=== PATIENT | male | born 1945 | race Caucasian/White ===

== ENCOUNTER 2017-05-08 10:34 | Emergency (ER) | payer MEDICARE, MEDICAID ==
[~2017-05-08] VITALS: Ht 185.4 cm; Wt 83.2 kg
[~2017-05-08 10:34] MED LIST: ALBU18HF2 INH; ASPI-611 PO; ATOR10TA70 PO; COL100C PO; FLO0.4C PO; GABA-532 PO; MAGN400C PO; NITR0.4T51 SL; SERT100T10 PO; TRAZ-143 PO; VITA-268 PO
[2017-05-08] MEDS ORDERED: LIDOcaine 2% 10ml TOPICAL JELLY (Urojet) MM ONE (13:30)
[2017-05-08 14:14] LABS: CLARITY,URINE CLOUDY (Clear); COLOR,URINE AMBER (Yellow); GLUCOSE, URINE NEGATIVE (Neg); KETONES,URINE >=80 mg/dl (Neg); LEUKOCYTE ESTERASE ,URINE MODERATE (Neg); NITRITES, URINE POSITIVE (Neg); OCCULT BLOOD,URINE LARGE (Neg); PH,URINE >=9.0 (4.8-8.0); PROTEIN,URINE >=300 mg/dl (Neg)
[2017-05-08 14:16] LABS: UA COLLECTION TYPE NON-SPECIFIED
[2017-05-08 14:19] LABS: BACTERIA,URINE 2+ /HPF (Neg); RBC,URINE TNTC /HPF (0-2); WBC,URINE 50-100 /HPF (0-4)
[2017-05-08 14:20] LABS: SQUAMOUS EPITHELIAL CELL,UR FEW /LPF (FEW)
[2017-05-08] MEDS ORDERED: CEPH-572 PO (14:29)
[2017-05-08] MEDS ORDERED: CefTRIAXone 1000mg IM Kit (w/lidocaine diluent) IM ONE (14:30)
[2017-05-08 14:50] VITALS: BP 123/72
[2017-05-21] MEDS ORDERED: CEPH500C5 PO (00:32)
[2017-06-17] MEDS ORDERED: CEPH500C2 PO (16:20)
== END 2017-05-08 14:54 | disposition home or self-care (01) ==
LOC: ER 10:34
DX: T83.038A Leakage of other urinary catheter, initial encounter (principal); N39.0 Urinary tract infection, site not specified; F32.9 Major depressive disorder, single episode, unspecified; Y92.9 Unspecified place or not applicable
CPT/HCPCS: 51702; 81001; 87077; 87088; 87186; 96372; 99284; A4310; J0696

== ENCOUNTER 2018-03-03 13:04 | Emergency (ER) | payer MEDICARE, MEDICAID ==
[~2018-03-03] VITALS: Ht 185.4 cm; Wt 82.5 kg
[~2018-03-03 13:04] MED LIST changes: +CEPH500C5 PO; -TRAZ-143 PO; +TRAZ-218 PO
[2018-03-03 13:09] VITALS: BP 108/65
== END 2018-03-03 14:24 | disposition home or self-care (01) ==
LOC: ER 13:04
DX: T42.6X1A Poisoning by other antiepileptic and sedative-hypnotic drugs, accidental (unintentional), initial encounter (principal); T46.6X1A Poisoning by antihyperlipidemic and antiarteriosclerotic drugs, accidental (unintentional), initial encounter; T44.6X1A Poisoning by alpha-adrenoreceptor antagonists, accidental (unintentional), initial encounter; F33.9 Major depressive disorder, recurrent, unspecified; G47.30 Sleep apnea, unspecified; Z79.899 Other long term (current) drug therapy; Z79.82 Long term (current) use of aspirin; Y92.9 Unspecified place or not applicable
CPT/HCPCS: 99284

== ENCOUNTER 2018-06-30 21:15 | Emergency (ER) | payer MEDICARE, MEDICAID ==
[~2018-06-30] VITALS: Ht 182.9 cm; Wt 77.3 kg
[~2018-06-30 21:15] MED LIST changes: -CEPH500C5 PO
[2018-06-30] MEDS ORDERED: morphine 4 MG/ML inj SYRINge IV ONE ×2 (21:25→22:05)
[2018-06-30] MEDS ORDERED: ondansetron/PF 4mg/2ml inj IV ONE (21:25)
[2018-06-30] MEDS ORDERED: LIDOcaine 1% 30ml preserv. free vial IJ ONE (22:00)
[2018-06-30 22:15] VITALS: BP 127/81
[2018-06-30] MEDS ORDERED: HYDROcodone/acetaminophen 10/325mg tab PO ONE (23:25)
[2018-07-01] MEDS ORDERED: HYDR-4353 PO (01:02)
[2018-07-01] MEDS ORDERED: IBUP-1986 PO (01:02)
== END 2018-07-01 01:18 | disposition home or self-care (01) ==
LOC: ER 21:16
DX: S52.592A Other fractures of lower end of left radius, initial encounter for closed fracture (principal); S52.692A Other fracture of lower end of left ulna, initial encounter for closed fracture; S52.612A Displaced fracture of left ulna styloid process, initial encounter for closed fracture; N40.0 Benign prostatic hyperplasia without lower urinary tract symptoms; F32.9 Major depressive disorder, single episode, unspecified; G47.30 Sleep apnea, unspecified; Z98.52 Vasectomy status; Z79.82 Long term (current) use of aspirin; Y04.8XXA Assault by other bodily force, initial encounter; Y93.89 Activity, other specified; Y92.89 Other specified places as the place of occurrence of the external cause; Y99.8 Other external cause status
CPT/HCPCS: 25605; 73090; 73100; 73110; 96374; 96375; 96376; 99284; J2270; J2405; J3490

== ENCOUNTER 2018-07-05 22:24 | Emergency (ER) | payer MEDICARE, MEDICAID ==
[~2018-07-05] VITALS: Ht 182.9 cm; Wt 77.7 kg
[~2018-07-05 22:24] MED LIST changes: +HYDR-4353 PO; +IBUP-1986 PO
[2018-07-05 23:27] VITALS: BP 113/73
== END 2018-07-05 23:29 | disposition home or self-care (01) ==
LOC: ER 22:24
DX: S52.592D Other fractures of lower end of left radius, subsequent encounter for closed fracture with routine healing (principal); S52.692D Other fracture of lower end of left ulna, subsequent encounter for closed fracture with routine healing; S52.612D Displaced fracture of left ulna styloid process, subsequent encounter for closed fracture with routine healing; Z98.890 Other specified postprocedural states; Z79.82 Long term (current) use of aspirin; Z79.899 Other long term (current) drug therapy; Y04.0XXD Assault by unarmed brawl or fight, subsequent encounter
CPT/HCPCS: 29125; 73110; 99283

== ENCOUNTER 2018-07-07 09:44 | Outpatient (CLI) | payer MEDICARE, MEDICAID ==
[~2018-07-07] VITALS: Ht 177.8 cm; Wt 79.9 kg
[2018-07-07 09:49] VITALS: BP 120/70
[2018-07-07 12:49] VITALS: BP 120/70
== END 2018-07-07 09:57 | disposition home or self-care (01) ==
LOC: ORTHO 09:44
PROVIDERS: ATTEND Nurse Practitioner Family
DX: S52.571A Other intraarticular fracture of lower end of right radius, initial encounter for closed fracture (principal); S52.692A Other fracture of lower end of left ulna, initial encounter for closed fracture; M19.032 Primary osteoarthritis, left wrist; M25.732 Osteophyte, left wrist; E78.00 Pure hypercholesterolemia, unspecified; J45.909 Unspecified asthma, uncomplicated; F32.9 Major depressive disorder, single episode, unspecified; G47.30 Sleep apnea, unspecified; Z98.52 Vasectomy status; Z79.899 Other long term (current) drug therapy; Z79.82 Long term (current) use of aspirin; X58.XXXA Exposure to other specified factors, initial encounter; Y93.89 Activity, other specified; Y92.89 Other specified places as the place of occurrence of the external cause; Y99.8 Other external cause status
CPT/HCPCS: 99215

== ENCOUNTER 2018-07-10 14:15 | Day surgery (SDC) | payer MEDICARE, MEDICAID ==
[2018-07-09 10:53] LABS: BASOPHILS % (AUTO) 0.5 % (0-1); EOSINOPHILS # (AUTO) 0.2 X10'3 (0-0.9); LYMPHOCYTES # (AUTO) 1.3 X10'3 (1.1-4.8); LYMPHOCYTES % (AUTO) 22.5 % (21-51); MEAN CORPUSCULAR HEMOGLOBIN 30.9 PG (27.0-31.0); MEAN CORPUSCULAR HGB CONC 33.5 % (33.0-36.5); MEAN CORPUSCULAR VOLUME 92.3 FL (78-98); MEAN PLATELET VOLUME 7.2 FL (7.4-10.4); MONOCYTES # (AUTO) 0.4 X10'3 (0-0.9); MONOCYTES % (AUTO) 6.4 % (2-12); NEUTROPHILS % (AUTO) 67.6 % (42-75); PRE OP HEMATOCRIT 40.6 % (42.0-52.0); PRE OP HEMOGLOBIN 13.6 g/dL (14.0-17.9); PRE OP PLATELET COUNT 314 X10'3 (140-440); RED BLOOD COUNT 4.39 X10'6 (4.70-6.10)
[2018-07-09 11:12] LABS: ALBUMIN 3.1 G/DL (3.4-5.0); ALKALINE PHOSPHATASE 76 IU/L (46-116); BLOOD UREA NITROGEN 20 MG/DL (7-18); CALCIUM 8.8 MG/DL (8.5-10.1); CHLORIDE 109 MMOL/L (99-107); PRE OP ALT 20 U/L (30-65); PRE OP ANION GAP 8 (8-16); PRE OP AST 14 U/L (10-37); PRE OP BILIRUB, TOTAL 0.3 MG/DL (0.0-1.0); PRE OP GLUCOSE 113 MG/DL (70-104); PRE OP SODIUM 143 MMOL/L (135-145); TOTAL CARBON DIOXIDE 26.2 MMOL/L (24-32); TOTAL PROTEIN 6.3 G/DL (6.4-8.2); eGFR 74 ML/MIN
[~2018-07-10] VITALS: Ht 182.9 cm; Wt 79.7 kg
[2018-07-10] VITALS (8 sets, daily range): BP systolic 127–139; BP diastolic 68–77
[~2018-07-10 14:15] MED LIST changes: -ALBU18HF2 INH; -COL100C PO; -HYDR-4353 PO; -IBUP-1986 PO; +LIDOcaine 1% (10mg/ml) 2ml vial ONE; -SERT100T10 PO; -TRAZ-218 PO; -VITA-268 PO; +cefazolin/dext.iso 2gm/50ml 50 ML IV ONE; +famotidine 20mg tablet PO ONE; +ringers solution, lacted 1,000 ML IV SCH; +vancomycin inj 1,500 MG in normal saline 300ml IV soln IV ONE
[2018-07-10] MEDS ORDERED: fentaNYL/PF 50MCG/1 ML 2ML syringe ONE (16:43)
[2018-07-10] MEDS ORDERED: LIDOcaine 1%/PF 5ML 10 MG/ML VIAL ONE (16:44)
[2018-07-10] MEDS ORDERED: MIDAZolam 5mg/5ml vial ONE (16:44)
[2018-07-10] MEDS ORDERED: propofol inj 20 ML IV ONE (16:44)
[2018-07-10] MEDS ORDERED: ROPIVAcaine 0.5% (5mg/ml) 30ml vial ONE (16:44)
[2018-07-10] MEDS ORDERED: sevoflurane 250ml liquid IH ONE (17:27)
[2018-07-10] MEDS ORDERED: bacitracin 15gm ointment TP ONE (18:03)
== END 2018-07-10 19:33 | disposition home or self-care (01) ==
LOC: PAS 14:15
PROVIDERS: ATTEND Orthopaedic Surgery
DX: S52.572A Other intraarticular fracture of lower end of left radius, initial encounter for closed fracture (principal); S52.612A Displaced fracture of left ulna styloid process, initial encounter for closed fracture; G47.33 Obstructive sleep apnea (adult) (pediatric); G89.18 Other acute postprocedural pain; M85.832 Other specified disorders of bone density and structure, left forearm; N40.0 Benign prostatic hyperplasia without lower urinary tract symptoms; G62.89 Other specified polyneuropathies; I25.10 Atherosclerotic heart disease of native coronary artery without angina pectoris; E78.5 Hyperlipidemia, unspecified; K21.9 Gastro-esophageal reflux disease without esophagitis; F32.9 Major depressive disorder, single episode, unspecified; Z98.52 Vasectomy status; Z79.82 Long term (current) use of aspirin; Z86.79 Personal history of other diseases of the circulatory system; Z87.891 Personal history of nicotine dependence; Z79.891 Long term (current) use of opiate analgesic; Z98.890 Other specified postprocedural states; Z79.899 Other long term (current) drug therapy; X58.XXXA Exposure to other specified factors, initial encounter; Y93.89 Activity, other specified; Y92.89 Other specified places as the place of occurrence of the external cause; Y99.8 Other external cause status; Z82.3 Family history of stroke; Z82.49 Family history of ischemic heart disease and other diseases of the circulatory system
CPT/HCPCS: 20690; 25606; 25651; 36415; 64450; 71046; 80053; 85025; A6222; A6449; J0690; J2001; J2250; J2704; J3010; J3370; J3490; A7000; J2795; J7120

== ENCOUNTER 2018-07-28 12:03 | Outpatient (CLI) | payer MEDICARE, MEDICAID ==
[~2018-07-28 12:03] MED LIST changes: -LIDOcaine 1% (10mg/ml) 2ml vial ONE; -cefazolin/dext.iso 2gm/50ml 50 ML IV ONE; -famotidine 20mg tablet PO ONE; -ringers solution, lacted 1,000 ML IV SCH; -vancomycin inj 1,500 MG in normal saline 300ml IV soln IV ONE
== END 2018-07-28 12:50 | disposition home or self-care (01) ==
LOC: ORTHO 12:03
PROVIDERS: ATTEND Nurse Practitioner Family
DX: S52.572G Other intraarticular fracture of lower end of left radius, subsequent encounter for closed fracture with delayed healing (principal); F32.9 Major depressive disorder, single episode, unspecified; Z79.899 Other long term (current) drug therapy; W18.39XD Other fall on same level, subsequent encounter
CPT/HCPCS: 73100; 99215

== ENCOUNTER 2018-08-07 10:46 | Outpatient (CLI) | payer MEDICARE, MEDICAID ==
[2018-08-07 11:16] VITALS: BP 131/74
== END 2018-08-07 11:49 | disposition home or self-care (01) ==
LOC: ORTHO 10:46
PROVIDERS: ATTEND Nurse Practitioner Family
DX: S52.572G Other intraarticular fracture of lower end of left radius, subsequent encounter for closed fracture with delayed healing (principal); S52.692G Other fracture of lower end of left ulna, subsequent encounter for closed fracture with delayed healing; F32.9 Major depressive disorder, single episode, unspecified; Z79.82 Long term (current) use of aspirin; Z79.899 Other long term (current) drug therapy; Z98.890 Other specified postprocedural states; W19.XXXD Unspecified fall, subsequent encounter
CPT/HCPCS: 99214

== ENCOUNTER 2018-08-14 11:02 | Outpatient (CLI) | payer MEDICARE, MEDICAID | END 2018-08-14 12:13 | disposition home or self-care (01) | LOC: ORTHO 11:02 | PROVIDERS: ATTEND Nurse Practitioner Family | DX: S52.572G Other intraarticular fracture of lower end of left radius, subsequent encounter for closed fracture with delayed healing (principal); S52.612D Displaced fracture of left ulna styloid process, subsequent encounter for closed fracture with routine healing; Z79.82 Long term (current) use of aspirin; X58.XXXD Exposure to other specified factors, subsequent encounter | CPT/HCPCS: 73110; G0463 ==

== ENCOUNTER 2018-08-20 10:26 | Outpatient (CLI) | payer MEDICARE, MEDICAID ==
[2018-08-20 11:03] VITALS: BP 121/66
== END 2018-08-20 11:13 | disposition home or self-care (01) ==
LOC: ORTHO 10:26
PROVIDERS: ATTEND Nurse Practitioner Family
DX: S52.572G Other intraarticular fracture of lower end of left radius, subsequent encounter for closed fracture with delayed healing (principal); S52.612G Displaced fracture of left ulna styloid process, subsequent encounter for closed fracture with delayed healing; Z79.82 Long term (current) use of aspirin; X58.XXXD Exposure to other specified factors, subsequent encounter
CPT/HCPCS: G0463

== ENCOUNTER 2018-08-28 10:53 | Outpatient (CLI) | payer MEDICARE, MEDICAID ==
[2018-08-28 10:52] VITALS: BP 128/65
== END 2018-08-28 13:15 | disposition home or self-care (01) ==
LOC: ORTHO 10:53
PROVIDERS: ATTEND Nurse Practitioner Family
DX: S52.572G Other intraarticular fracture of lower end of left radius, subsequent encounter for closed fracture with delayed healing (principal); S52.692G Other fracture of lower end of left ulna, subsequent encounter for closed fracture with delayed healing; F32.9 Major depressive disorder, single episode, unspecified; Z98.890 Other specified postprocedural states; Z79.899 Other long term (current) drug therapy; X58.XXXD Exposure to other specified factors, subsequent encounter
CPT/HCPCS: 73110; 99214; A4590

== ENCOUNTER 2018-09-15 13:12 | Outpatient (CLI) | payer MEDICARE, MEDICAID ==
[2018-09-15 13:11] VITALS: BP 123/69
== END 2018-09-15 14:07 | disposition home or self-care (01) ==
LOC: ORTHO 13:12
PROVIDERS: ATTEND Nurse Practitioner Family
DX: S52.572G Other intraarticular fracture of lower end of left radius, subsequent encounter for closed fracture with delayed healing (principal); S52.615G Nondisplaced fracture of left ulna styloid process, subsequent encounter for closed fracture with delayed healing; F32.9 Major depressive disorder, single episode, unspecified; Z60.2 Problems related to living alone; Z79.82 Long term (current) use of aspirin; X58.XXXD Exposure to other specified factors, subsequent encounter
CPT/HCPCS: 73100; 99213; A4590

== ENCOUNTER 2018-10-02 11:41 | Outpatient (CLI) | payer MEDICARE, MEDICAID ==
[2018-10-02 11:50] VITALS: BP 117/68
== END 2018-10-02 12:14 | disposition home or self-care (01) ==
LOC: ORTHO 11:41
PROVIDERS: ATTEND Nurse Practitioner Family
DX: S52.592G Other fractures of lower end of left radius, subsequent encounter for closed fracture with delayed healing (principal); S52.692G Other fracture of lower end of left ulna, subsequent encounter for closed fracture with delayed healing; S52.612G Displaced fracture of left ulna styloid process, subsequent encounter for closed fracture with delayed healing; M79.89 Other specified soft tissue disorders; M85.80 Other specified disorders of bone density and structure, unspecified site; F32.9 Major depressive disorder, single episode, unspecified; Z60.2 Problems related to living alone; Z79.82 Long term (current) use of aspirin; X58.XXXD Exposure to other specified factors, subsequent encounter
CPT/HCPCS: 73110; 99213; A4590

== ENCOUNTER 2018-10-22 08:33 | Outpatient (CLI) | payer MEDICARE, MEDICAID ==
[2018-10-22 08:42] VITALS: BP 109/58
== END 2018-10-22 09:26 | disposition home or self-care (01) ==
LOC: ORTHO 08:33
PROVIDERS: ATTEND Orthopaedic Surgery
DX: S52.592G Other fractures of lower end of left radius, subsequent encounter for closed fracture with delayed healing (principal); S52.692G Other fracture of lower end of left ulna, subsequent encounter for closed fracture with delayed healing; S52.612G Displaced fracture of left ulna styloid process, subsequent encounter for closed fracture with delayed healing; F32.9 Major depressive disorder, single episode, unspecified; M79.89 Other specified soft tissue disorders; M85.842 Other specified disorders of bone density and structure, left hand; Z60.2 Problems related to living alone; Z79.82 Long term (current) use of aspirin; X58.XXXD Exposure to other specified factors, subsequent encounter
CPT/HCPCS: 73110; 99213

== ENCOUNTER 2018-11-26 14:02 | Outpatient (CLI) | payer MEDICARE, MEDICAID ==
[2018-11-26 17:05] VITALS: BP 118/70
== END 2018-11-26 14:50 | disposition home or self-care (01) ==
LOC: ORTHO 14:02
PROVIDERS: ATTEND Orthopaedic Surgery
DX: S52.592D Other fractures of lower end of left radius, subsequent encounter for closed fracture with routine healing (principal); S52.692D Other fracture of lower end of left ulna, subsequent encounter for closed fracture with routine healing; M19.042 Primary osteoarthritis, left hand; X58.XXXD Exposure to other specified factors, subsequent encounter
CPT/HCPCS: 73100; 99213

== ENCOUNTER 2019-01-29 11:31 | Outpatient (CLI) | payer MEDICARE, MEDICAID | END 2019-01-29 12:34 | disposition home or self-care (01) | LOC: ORTHO 11:31 | PROVIDERS: ATTEND Orthopaedic Surgery | DX: S52.592D Other fractures of lower end of left radius, subsequent encounter for closed fracture with routine healing (principal); S52.692D Other fracture of lower end of left ulna, subsequent encounter for closed fracture with routine healing; X58.XXXD Exposure to other specified factors, subsequent encounter | CPT/HCPCS: 73110 ==

== ENCOUNTER 2019-12-02 12:59 | Emergency (ER) | payer MEDICARE, MEDICAID ==
[~2019-12-02] VITALS: Ht 185.4 cm; Wt 72.0 kg
[2019-12-02] MEDS ORDERED: PRED10TA23 PO (14:17)
[2019-12-02] MEDS ORDERED: PRED20TA PO (14:19)
[2019-12-02] MEDS ORDERED: ACYC-202 PO (14:19)
[2019-12-02 14:42] VITALS: BP 118/69
== END 2019-12-02 14:43 | disposition home or self-care (01) ==
LOC: ER 13:00
DX: G51.0 Bell's palsy (principal); E78.00 Pure hypercholesterolemia, unspecified; J45.909 Unspecified asthma, uncomplicated; E11.9 Type 2 diabetes mellitus without complications; F32.9 Major depressive disorder, single episode, unspecified; Z87.442 Personal history of urinary calculi; Z60.2 Problems related to living alone; Z79.82 Long term (current) use of aspirin; Z79.2 Long term (current) use of antibiotics; Z79.899 Other long term (current) drug therapy
CPT/HCPCS: 99283

== ENCOUNTER 2022-02-05 13:30 | Emergency (ER) | payer MEDICARE, MEDICAID ==
[~2022-02-05] VITALS: Ht 172.7 cm; Wt 72.8 kg
[~2022-02-05 13:30] MED LIST changes: +CIPR-202 PO; -GABA-532 PO; +LEVO250T43 PO
[2022-02-05 14:17] VITALS: BP 128/73
[2022-02-05 16:59] LABS: BASOPHILS # (AUTO) 0.1 X10'3 (0-0.2); BASOPHILS % (AUTO) 0.9 % (0-1); EOSINOPHILS # (AUTO) 0.2 X10'3 (0-0.9); EOSINOPHILS % (AUTO) 2.6 % (0-6); HEMATOCRIT 42.2 % (42.0-52.0); LYMPHOCYTES # (AUTO) 1.2 X10'3 (1.1-4.8); MEAN CORPUSCULAR HEMOGLOBIN 29.9 PG (27.0-31.0); MEAN CORPUSCULAR HGB CONC 33.2 g/dL (33.0-36.5); MEAN CORPUSCULAR VOLUME 89.8 FL (78-98); MEAN PLATELET VOLUME 7.7 FL (7.4-10.4); MONOCYTES # (AUTO) 0.5 X10'3 (0-0.9); MONOCYTES % (AUTO) 7.3 % (2-12); NEUTROPHILS # (AUTO) 4.8 X10'3 (1.8-7.7); NEUTROPHILS % (AUTO) 71.2 % (42-75); PLATELET COUNT 252 X10'3 (140-440); RED BLOOD COUNT 4.69 X10'6 (4.70-6.10); RED CELL DISTRIBUTION WIDTH 13.4 % (11.5-14.5); WHITE BLOOD COUNT 6.7 X10'3 (4.5-11.0)
[2022-02-05 17:10] LABS: ALANINE AMINOTRANSFERASE 22 U/L (12-78); ALBUMIN 3.5 G/DL (3.4-5.0); ALKALINE PHOSPHATASE 88 IU/L (46-116); ANION GAP 9 (8-16); ASPARTATE AMINO TRANSFERASE 12 U/L (10-37); BILIRUBIN,TOTAL 0.6 MG/DL (0.1-1.0); BLOOD UREA NITROGEN 26 MG/DL (7-18); BUN/CREATININE RATIO 26.3 (5.4-32.0); CHLORIDE 108 MMOL/L (99-107); CREATININE 0.99 MG/DL (0.60-1.10); GLUCOSE 110 MG/DL (70-104); POTASSIUM 3.8 MMOL/L (3.5-5.1); SODIUM 142 MMOL/L (135-145); TOTAL CARBON DIOXIDE 24.6 MMOL/L (24-32); TOTAL PROTEIN 7.1 G/DL (6.4-8.2); eGFR 74 ML/MIN
[2022-02-05 17:20] LABS: UA COLLECTION TYPE FOLEY CATH
[2022-02-05 17:21] LABS: CLARITY,URINE SLIGHTLY CLOUDY (Clear); COLOR,URINE YELLOW (Yellow); GLUCOSE, URINE NEGATIVE (Neg); KETONES,URINE NEGATIVE (Neg); LEUKOCYTE ESTERASE ,URINE NEGATIVE (Neg); NITRITES, URINE NEGATIVE (Neg); OCCULT BLOOD,URINE LARGE (Neg); PH,URINE 8.5 (4.8-8.0); PROTEIN,URINE 100 mg/dl (Neg); UROBILINOGEN,URINE 0.2 E.U/dL (0.2-1.0)
[2022-02-05 17:27] LABS: AMORPHOUS PHOSPHATES 1+; BACTERIA,URINE NONE SEEN /HPF (Neg); RBC,URINE 50-100 /HPF (0-2); SQUAMOUS EPITHELIAL CELL,UR FEW /LPF (FEW); WBC,URINE 0-4 /HPF (0-4)
== END 2022-02-05 18:02 | disposition home or self-care (01) ==
LOC: ER 13:31
DX: T85.9XXA Unspecified complication of internal prosthetic device, implant and graft, initial encounter (principal); R33.9 Retention of urine, unspecified; R31.9 Hematuria, unspecified; E78.00 Pure hypercholesterolemia, unspecified; J45.909 Unspecified asthma, uncomplicated; E11.9 Type 2 diabetes mellitus without complications; F32.A Depression, unspecified; Z79.82 Long term (current) use of aspirin; Z87.448 Personal history of other diseases of urinary system; Z79.899 Other long term (current) drug therapy
CPT/HCPCS: 36415; 80053; 81001; 85025; 99283

== ENCOUNTER 2022-02-14 12:51 | Emergency (ER) | payer MEDICARE, MEDICAID ==
[~2022-02-14] VITALS: Ht 182.9 cm; Wt 80.9 kg
[2022-02-14 12:56] VITALS: BP 143/68
[2022-02-14] MEDS ORDERED: CefTRIAXone 1000mg IM Kit (w/lidocaine diluent) IM ONE (13:40)
[2022-02-14] MEDS ORDERED: FOSF3PAC PO (13:43)
[2022-02-14 13:52] LABS: CLARITY,URINE CLOUDY (Clear); COLOR,URINE YELLOW (Yellow); GLUCOSE, URINE NEGATIVE (Neg); KETONES,URINE NEGATIVE (Neg); LEUKOCYTE ESTERASE ,URINE MODERATE (Neg); NITRITES, URINE NEGATIVE (Neg); OCCULT BLOOD,URINE MODERATE (Neg); PH,URINE 8.5 (4.8-8.0); PROTEIN,URINE 100 mg/dl (Neg); UROBILINOGEN,URINE 0.2 E.U/dL (0.2-1.0)
[2022-02-14 13:55] LABS: UA COLLECTION TYPE INDWELLING CATH
[2022-02-14 14:24] LABS: RBC,URINE 20-50 /HPF (0-2)
[2022-02-14 14:25] LABS: AMORPHOUS PHOSPHATES 4+
[2022-02-14 14:26] LABS: BACTERIA,URINE 4+ /HPF (Neg)
[2022-02-14 14:30] LABS: MUCUS STRANDS MANY /LPF (Neg); SQUAMOUS EPITHELIAL CELL,UR FEW /LPF (FEW); WBC,URINE 0-4 /HPF (0-4)
[2022-02-14 14:34] LABS: TRIPLE PHOSPHATE CRYST 1+ /HPF (NEGATIVE)
== END 2022-02-14 15:20 | disposition home or self-care (01) ==
LOC: ER 12:53
DX: T83.098A Other mechanical complication of other urinary catheter, initial encounter (principal); N39.0 Urinary tract infection, site not specified; E78.00 Pure hypercholesterolemia, unspecified; J45.909 Unspecified asthma, uncomplicated; E11.9 Type 2 diabetes mellitus without complications; F32.A Depression, unspecified; Z87.442 Personal history of urinary calculi; Z79.82 Long term (current) use of aspirin; Z79.2 Long term (current) use of antibiotics
CPT/HCPCS: 51702; 81001; 87077; 87088; 87186; 96372; 99284; J0696; 99283

== ENCOUNTER 2022-02-22 08:53 | Emergency (ER) | payer MEDICARE, MEDICAID ==
[~2022-02-22] VITALS: Ht 182.9 cm; Wt 80.9 kg
[~2022-02-22 08:53] MED LIST changes: +FOSF3PAC PO; -LEVO250T43 PO; +LEVO250T74 PO
[2022-02-22 09:18] VITALS: BP 137/71
[2022-02-22] MEDS ORDERED: LIDOcaine 2% 10ml TOPICAL JELLY (Urojet) TP ONE (09:25)
[2022-02-22 12:05] LABS: CLARITY,URINE CLOUDY (Clear); COLOR,URINE YELLOW (Yellow); GLUCOSE, URINE NEGATIVE (Neg); KETONES,URINE NEGATIVE (Neg); LEUKOCYTE ESTERASE ,URINE LARGE (Neg); NITRITES, URINE NEGATIVE (Neg); OCCULT BLOOD,URINE LARGE (Neg); PH,URINE >=9.0 (4.8-8.0); PROTEIN,URINE >=300 mg/dl (Neg)
[2022-02-22 12:11] LABS: UA COLLECTION TYPE FOLEY CATH
[2022-02-22] MEDS ORDERED: cephalexin 250mg capsule PO ONE (12:15)
[2022-02-22 12:38] LABS: TRIPLE PHOSPHATE CRYST 2+ /HPF (NEGATIVE)
[2022-02-22 12:39] LABS: AMORPHOUS PHOSPHATES 3+
[2022-02-22 12:40] LABS: BACTERIA,URINE FEW /HPF (Neg); MUCUS STRANDS NONE SEEN /LPF (Neg); SQUAMOUS EPITHELIAL CELL,UR NONE SEEN /LPF (FEW)
[2022-02-22] MEDS ORDERED: CEPH-585 PO (13:00)
[2022-04-05] MEDS ORDERED: PREG50CA PO (14:18)
[2022-04-05] MEDS ORDERED: OMEP20CA15 PO (14:21)
[2022-04-05] MEDS ORDERED: OMEP40CA21 PO (16:50)
[2022-04-07] MEDS ORDERED: AMOX-419 PO (10:55)
== END 2022-02-22 13:20 | disposition home or self-care (01) ==
LOC: ER 08:53
DX: N39.0 Urinary tract infection, site not specified (principal); T83.9XXA Unspecified complication of genitourinary prosthetic device, implant and graft, initial encounter; E78.00 Pure hypercholesterolemia, unspecified; J45.909 Unspecified asthma, uncomplicated; E11.9 Type 2 diabetes mellitus without complications
CPT/HCPCS: 51702; 81001; 87077; 87088; 87186; 99284; A4314; A4340; A4358

== ENCOUNTER 2022-03-18 19:36 | Emergency (ER) | payer MEDICARE, MEDICAID ==
[~2022-03-18] VITALS: Ht 182.9 cm; Wt 78.0 kg
[~2022-03-18 19:36] MED LIST changes: +CEPH-585 PO; -LEVO250T74 PO
[2022-03-18 20:10] VITALS: BP 124/69
[2022-03-18] MEDS ORDERED: LIDOcaine 2% 10ml TOPICAL JELLY (Urojet) TP ONE (21:40)
== END 2022-03-18 23:11 | disposition home or self-care (01) ==
LOC: ER 19:37
DX: T83.098A Other mechanical complication of other urinary catheter, initial encounter (principal); E78.00 Pure hypercholesterolemia, unspecified; J45.909 Unspecified asthma, uncomplicated; E11.9 Type 2 diabetes mellitus without complications
CPT/HCPCS: 51702; 99284; A4314; A4340; A4357; A4358

== ENCOUNTER 2022-04-13 13:38 | Emergency (ER) | payer MEDICARE, MEDICAID ==
[~2022-04-13] VITALS: Ht 182.9 cm; Wt 80.9 kg
[~2022-04-13 13:38] MED LIST changes: +AMOX-419 PO; +LEVO250T74 PO; +OMEP20CA15 PO; +OMEP40CA21 PO; +PREG50CA PO
[2022-04-13] MEDS ORDERED: LIDOcaine 2% 10ml TOPICAL JELLY (Urojet) TP ONE (18:00)
[2022-04-13 18:26] LABS: BASOPHILS # (AUTO) 0.1 X10'3 (0-0.2); BASOPHILS % (AUTO) 0.6 % (0-1); EOSINOPHILS % (AUTO) 0 % (0-6); HEMATOCRIT 40.3 % (42.0-52.0); HEMOGLOBIN 13.5 g/dl (14.0-17.9); LYMPHOCYTES # (AUTO) 0.6 X10'3 (1.1-4.8); LYMPHOCYTES % (AUTO) 6.1 % (21-51); MEAN CORPUSCULAR HEMOGLOBIN 29.8 PG (27.0-31.0); MEAN CORPUSCULAR HGB CONC 33.5 g/dL (33.0-36.5); MEAN CORPUSCULAR VOLUME 88.7 FL (78-98); MEAN PLATELET VOLUME 7.4 FL (7.4-10.4); MONOCYTES # (AUTO) 0.3 X10'3 (0-0.9); MONOCYTES % (AUTO) 3.8 % (2-12); NEUTROPHILS # (AUTO) 8.1 X10'3 (1.8-7.7); NEUTROPHILS % (AUTO) 89.5 % (42-75); PLATELET COUNT 281 X10'3 (140-440); RED BLOOD COUNT 4.55 X10'6 (4.70-6.10); RED CELL DISTRIBUTION WIDTH 14.3 % (11.5-14.5)
[2022-04-13 18:30] LABS: ALANINE AMINOTRANSFERASE 23 U/L (12-78); ALBUMIN 3.7 G/DL (3.4-5.0); ALBUMIN/GLOBULIN RATIO 1.1 (1.1-1.5); ALKALINE PHOSPHATASE 102 IU/L (46-116); ANION GAP 10 (8-16); ASPARTATE AMINO TRANSFERASE 19 U/L (10-37); BILIRUBIN,TOTAL 0.5 MG/DL (0.1-1.0); BLOOD UREA NITROGEN 23 MG/DL (7-18); BUN/CREATININE RATIO 19.2 (5.4-32.0); CHLORIDE 107 MMOL/L (99-107); GLUCOSE 125 MG/DL (70-104); POTASSIUM 4.1 MMOL/L (3.5-5.1); SODIUM 143 MMOL/L (135-145); TOTAL CARBON DIOXIDE 25.9 MMOL/L (24-32); TOTAL PROTEIN 7.1 G/DL (6.4-8.2); eGFR 59 ML/MIN
[2022-04-13 18:33] LABS: CLARITY,URINE CLOUDY (Clear); GLUCOSE, URINE NEGATIVE (Neg); KETONES,URINE TRACE mg/dl (Neg); LEUKOCYTE ESTERASE ,URINE TRACE (Neg); NITRITES, URINE POSITIVE (Neg); OCCULT BLOOD,URINE LARGE (Neg); PROTEIN,URINE 100 mg/dl (Neg); UROBILINOGEN,URINE 0.2 E.U/dL (0.2-1.0)
[2022-04-13 18:48] LABS: COLOR,URINE AMBER (Yellow); UA COLLECTION TYPE NON-SPECIFIED
[2022-04-13 18:50] LABS: RBC,URINE TNTC /HPF (0-2)
[2022-04-13 18:51] LABS: BACTERIA,URINE FEW /HPF (Neg); SQUAMOUS EPITHELIAL CELL,UR FEW /LPF (FEW)
[2022-04-13 20:20] VITALS: BP 111/68
== END 2022-04-13 20:24 | disposition home or self-care (01) ==
LOC: ER 13:39
DX: R33.9 Retention of urine, unspecified (principal); E78.00 Pure hypercholesterolemia, unspecified; J45.909 Unspecified asthma, uncomplicated; E11.9 Type 2 diabetes mellitus without complications
CPT/HCPCS: 51702; 80053; 81001; 85025; 85610; 87077; 87088; 87186; 99284; A4314; A4338; A4340

== ENCOUNTER 2022-04-16 18:16 | Emergency (ER) | payer MEDICARE, MEDICAID ==
[~2022-04-16] VITALS: Ht 182.9 cm; Wt 80.9 kg
[~2022-04-16 18:16] MED LIST changes: -CEPH-585 PO; -CIPR-202 PO; -FOSF3PAC PO; -LEVO250T74 PO; -OMEP20CA15 PO
[2022-04-16 18:36] VITALS: BP 141/73
--- NOTE | 2022-04-16 19:06 | NUR ---
parr irr with 250ml h2o. 250ml in 260ml out. clean clear h20 with no clots visable. informed
== END 2022-04-16 19:54 | disposition home or self-care (01) ==
LOC: ER 18:16
DX: Z46.6 Encounter for fitting and adjustment of urinary device (principal); R31.9 Hematuria, unspecified; E78.00 Pure hypercholesterolemia, unspecified; E11.9 Type 2 diabetes mellitus without complications
CPT/HCPCS: 99283

== ENCOUNTER 2022-04-27 09:42 | Emergency (ER) | payer MEDICARE, MEDICAID ==
[~2022-04-27] VITALS: Ht 185.4 cm; Wt 78.8 kg
[~2022-04-27 09:42] MED LIST changes: -AMOX-419 PO
[2022-04-27 09:57] VITALS: BP 145/79
[2022-04-27 10:52] LABS: CLARITY,URINE TURBID (Clear); COLOR,URINE YELLOW (Yellow); GLUCOSE, URINE NEGATIVE (Neg); KETONES,URINE NEGATIVE (Neg); LEUKOCYTE ESTERASE ,URINE SMALL (Neg); NITRITES, URINE NEGATIVE (Neg); OCCULT BLOOD,URINE MODERATE (Neg); PH,URINE >=9.0 (4.8-8.0); PROTEIN,URINE >=300 mg/dl (Neg)
[2022-04-27 10:54] LABS: UA COLLECTION TYPE FOLEY CATH
[2022-04-27 11:08] LABS: AMORPHOUS PHOSPHATES 3+; BACTERIA,URINE 3+ /HPF (Neg); MUCUS STRANDS NONE SEEN /LPF (Neg); SQUAMOUS EPITHELIAL CELL,UR NONE SEEN /LPF (FEW); TRIPLE PHOSPHATE CRYST 4+ /HPF (NEGATIVE)
[2022-04-27 11:30] LABS: CLARITY,URINE CLOUDY (Clear); COLOR,URINE YELLOW (Yellow); GLUCOSE, URINE NEGATIVE (Neg); KETONES,URINE NEGATIVE (Neg); LEUKOCYTE ESTERASE ,URINE SMALL (Neg); NITRITES, URINE NEGATIVE (Neg); OCCULT BLOOD,URINE LARGE (Neg); PH,URINE 7.5 (4.8-8.0); PROTEIN,URINE 30 mg/dl (Neg); UROBILINOGEN,URINE 0.2 E.U/dL (0.2-1.0)
[2022-04-27 11:31] LABS: UA COLLECTION TYPE NON-SPECIFIED
[2022-04-27 11:39] LABS: BACTERIA,URINE 2+ /HPF (Neg); MUCUS STRANDS FEW /LPF (Neg); RBC,URINE TNTC /HPF (0-2); SQUAMOUS EPITHELIAL CELL,UR NONE SEEN /LPF (FEW)
[2022-04-27 11:40] LABS: AMORPHOUS PHOSPHATES 2+
== END 2022-04-27 12:53 | disposition home or self-care (01) ==
LOC: ER 09:43
DX: T83.511A Infection and inflammatory reaction due to indwelling urethral catheter, initial encounter (principal); R33.9 Retention of urine, unspecified; E11.42 Type 2 diabetes mellitus with diabetic polyneuropathy; E78.00 Pure hypercholesterolemia, unspecified; J45.909 Unspecified asthma, uncomplicated; F32.A Depression, unspecified; Z87.442 Personal history of urinary calculi; Z60.2 Problems related to living alone; Z79.82 Long term (current) use of aspirin; Z79.899 Other long term (current) drug therapy; Y84.8 Other medical procedures as the cause of abnormal reaction of the patient, or of later complication, without mention of misadventure at the time of the procedure
CPT/HCPCS: 51702; 81001; 87088; 99284; A4314; A4340; A4358; A5200

== ENCOUNTER 2022-05-02 18:43 | Emergency (ER) | payer MEDICARE, MEDICAID ==
[~2022-05-02] VITALS: Ht 185.4 cm; Wt 78.8 kg
[2022-05-02 19:54] VITALS: BP 132/100
[2022-05-02 20:38] LABS: CLARITY,URINE CLOUDY (Clear); COLOR,URINE YELLOW (Yellow); GLUCOSE, URINE NEGATIVE (Neg); KETONES,URINE NEGATIVE (Neg); LEUKOCYTE ESTERASE ,URINE MODERATE (Neg); NITRITES, URINE NEGATIVE (Neg); OCCULT BLOOD,URINE LARGE (Neg); PH,URINE >=9.0 (4.8-8.0); PROTEIN,URINE 100 mg/dl (Neg); UROBILINOGEN,URINE 0.2 E.U/dL (0.2-1.0)
[2022-05-02 20:53] LABS: UA COLLECTION TYPE NON-SPECIFIED
[2022-05-02 20:54] LABS: AMORPHOUS PHOSPHATES 1+; BACTERIA,URINE 2+ /HPF (Neg); MUCUS STRANDS NONE SEEN /LPF (Neg); RBC,URINE 20-50 /HPF (0-2); SQUAMOUS EPITHELIAL CELL,UR FEW /LPF (FEW); TRANSITIONAL EPI CELLS,URINE FEW /HPF
== END 2022-05-02 22:06 | disposition home or self-care (01) ==
LOC: ER 18:44
DX: R33.9 Retention of urine, unspecified (principal); T83.091A Other mechanical complication of indwelling urethral catheter, initial encounter; E78.00 Pure hypercholesterolemia, unspecified; J45.909 Unspecified asthma, uncomplicated; E11.9 Type 2 diabetes mellitus without complications
CPT/HCPCS: 51702; 81001; 87077; 87088; 99284; C1758; A4340; A4358

== ENCOUNTER 2022-05-06 09:29 | Emergency (ER) | payer MEDICARE, MEDICAID ==
[~2022-05-06] VITALS: Ht 182.9 cm; Wt 78.2 kg
[2022-05-06 09:40] VITALS: BP 157/83
[2022-05-06] MEDS ORDERED: ciprofloxacin 250mg tablet PO ONE (11:10)
[2022-05-06] MEDS ORDERED: CIPR-202 PO (11:12)
[2022-05-06 11:49] LABS: COLOR,URINE YELLOW (Yellow); GLUCOSE, URINE NEGATIVE (Neg); KETONES,URINE NEGATIVE (Neg); LEUKOCYTE ESTERASE ,URINE MODERATE (Neg); NITRITES, URINE NEGATIVE (Neg); OCCULT BLOOD,URINE LARGE (Neg); PH,URINE >=9.0 (4.8-8.0); PROTEIN,URINE 100 mg/dl (Neg); UROBILINOGEN,URINE 0.2 E.U/dL (0.2-1.0)
[2022-05-06 11:51] LABS: CLARITY,URINE CLOUDY (Clear); UA COLLECTION TYPE FOLEY CATH
[2022-05-06 12:04] LABS: RBC,URINE 20-50 /HPF (0-2)
[2022-05-06 12:05] LABS: SQUAMOUS EPITHELIAL CELL,UR FEW /LPF (FEW); TRIPLE PHOSPHATE CRYST 1+ /HPF (NEGATIVE)
[2022-05-06 12:06] LABS: AMORPHOUS PHOSPHATES 2+; BACTERIA,URINE 2+ /HPF (Neg)
== END 2022-05-06 12:08 | disposition home or self-care (01) ==
LOC: ER 09:29
DX: T83.038D Leakage of other urinary catheter, subsequent encounter (principal); E78.00 Pure hypercholesterolemia, unspecified; J45.909 Unspecified asthma, uncomplicated; E11.9 Type 2 diabetes mellitus without complications
CPT/HCPCS: 81001; 87088; 99283; A5200

== ENCOUNTER 2022-05-07 21:10 | Emergency (ER) | payer MEDICARE, MEDICAID ==
[~2022-05-07] VITALS: Ht 182.9 cm; Wt 78.0 kg
[~2022-05-07 21:10] MED LIST changes: +CIPR-202 PO
[2022-05-07 21:15] VITALS: BP 141/87
[2022-05-07] MEDS ORDERED: LIDOcaine 2% 10ml TOPICAL JELLY (Urojet) MM ONE (23:35)
[2022-05-08] MEDS ORDERED: ciprofloxacin 250mg tablet PO ONE (01:05)
== END 2022-05-08 01:26 | disposition home or self-care (01) ==
LOC: ER 21:11
DX: T83.098A Other mechanical complication of other urinary catheter, initial encounter (principal); E78.00 Pure hypercholesterolemia, unspecified; J45.909 Unspecified asthma, uncomplicated; Z87.442 Personal history of urinary calculi; E11.9 Type 2 diabetes mellitus without complications; F32.9 Major depressive disorder, single episode, unspecified; Y83.9 Surgical procedure, unspecified as the cause of abnormal reaction of the patient, or of later complication, without mention of misadventure at the time of the procedure; Y92.89 Other specified places as the place of occurrence of the external cause
CPT/HCPCS: 51702; 99284; C1758; A4314; A4340

== ENCOUNTER 2022-05-18 12:23 | Emergency (ER) | payer MEDICARE, MEDICAID ==
[~2022-05-18] VITALS: Ht 182.9 cm; Wt 78.6 kg
[2022-05-18 12:30] VITALS: BP 118/83
[2022-05-18] MEDS ORDERED: ondansetron 4mg rapidly disintigrating tab PO ONE (14:15)
[2022-05-20] MEDS ORDERED: ATOR20TA66 PO (18:07)
== END 2022-05-18 14:41 | disposition home or self-care (01) ==
LOC: ER 12:24
DX: T83.098A Other mechanical complication of other urinary catheter, initial encounter (principal); E78.00 Pure hypercholesterolemia, unspecified; J45.909 Unspecified asthma, uncomplicated; E11.9 Type 2 diabetes mellitus without complications; F32.A Depression, unspecified; Z87.442 Personal history of urinary calculi; Z79.82 Long term (current) use of aspirin
CPT/HCPCS: 51702; 99284; A4340

== ENCOUNTER 2022-06-16 13:10 | Emergency (ER) | payer MEDICARE, MEDICAID ==
[~2022-06-16] VITALS: Ht 182.9 cm; Wt 77.7 kg
[~2022-06-16 13:10] MED LIST changes: -ATOR10TA70 PO; +ATOR20TA66 PO; +CEFD300C3 PO; -CIPR-202 PO
[2022-06-16 13:26] VITALS: BP 130/77
--- NOTE | 2022-06-16 14:13 | NUR ---
PATIENT WAS GIVEN A NEW DRAINAGE BAG AND LEG STRAP. CASTANO CATH IS PATENT AND DRAINING WINE COLORED URINE.
== END 2022-06-16 18:47 | disposition home or self-care (01) ==
LOC: ER 13:11
DX: T83.9XXA Unspecified complication of genitourinary prosthetic device, implant and graft, initial encounter (principal); E78.00 Pure hypercholesterolemia, unspecified; J45.909 Unspecified asthma, uncomplicated; E11.9 Type 2 diabetes mellitus without complications
CPT/HCPCS: 51702; 99284; A5200

== ENCOUNTER 2022-06-18 18:25 | Emergency (ER) | payer MEDICARE, MEDICAID ==
[~2022-06-18] VITALS: Ht 193 cm; Wt 78.6 kg
[2022-06-18 19:33] VITALS: BP 154/90
== END 2022-06-18 21:29 | disposition home or self-care (01) ==
LOC: ER 18:25
DX: T83.9XXA Unspecified complication of genitourinary prosthetic device, implant and graft, initial encounter (principal); E78.00 Pure hypercholesterolemia, unspecified; J45.909 Unspecified asthma, uncomplicated; E11.9 Type 2 diabetes mellitus without complications
CPT/HCPCS: 99284; A4340

== ENCOUNTER 2022-06-27 13:59 | Emergency (ER) | payer MEDICARE, MEDICAID ==
[~2022-06-27] VITALS: Ht 182.9 cm; Wt 79.5 kg
[~2022-06-27 13:59] MED LIST changes: -CEFD300C3 PO
[2022-06-27 16:45] LABS: BASOPHILS % (AUTO) 0.3 % (0-1); EOSINOPHILS % (AUTO) 0.3 % (0-6); HEMATOCRIT 37.3 % (42.0-52.0); HEMOGLOBIN 12.2 g/dl (14.0-17.9); LYMPHOCYTES # (AUTO) 1.4 X10'3 (1.1-4.8); LYMPHOCYTES % (AUTO) 11.7 % (21-51); MEAN CORPUSCULAR HEMOGLOBIN 28.8 PG (27.0-31.0); MEAN CORPUSCULAR HGB CONC 32.7 g/dL (33.0-36.5); MEAN CORPUSCULAR VOLUME 88.1 FL (78-98); MEAN PLATELET VOLUME 7.3 FL (7.4-10.4); NEUTROPHILS # (AUTO) 9.5 X10'3 (1.8-7.7); NEUTROPHILS % (AUTO) 79.7 % (42-75); PLATELET COUNT 436 X10'3 (140-440); RED BLOOD COUNT 4.23 X10'6 (4.70-6.10); RED CELL DISTRIBUTION WIDTH 13.5 % (11.5-14.5); WHITE BLOOD COUNT 11.9 X10'3 (4.5-11.0)
--- NOTE | 2022-06-27 17:00 | NUR ---
Old 18F parr removed and new 18F parr placed. Pt tolerated well
[2022-06-27 17:01] LABS: ALANINE AMINOTRANSFERASE 34 U/L (12-78); ALBUMIN 2.4 G/DL (3.4-5.0); ALBUMIN/GLOBULIN RATIO 0.5 (1.1-1.5); ALKALINE PHOSPHATASE 272 IU/L (46-116); ANION GAP 9 (8-16); ASPARTATE AMINO TRANSFERASE 18 U/L (10-37); BILIRUBIN,TOTAL 1.2 MG/DL (0.1-1.0); BLOOD UREA NITROGEN 20 MG/DL (7-18); BUN/CREATININE RATIO 14.1 (5.4-32.0); CALCIUM 9.5 MG/DL (8.5-10.1); CHLORIDE 101 MMOL/L (99-107); CREATININE 1.42 MG/DL (0.60-1.10); GLUCOSE 114 MG/DL (70-104); POTASSIUM 3.4 MMOL/L (3.5-5.1); SODIUM 135 MMOL/L (135-145); TOTAL CARBON DIOXIDE 24.8 MMOL/L (24-32); TOTAL PROTEIN 6.8 G/DL (6.4-8.2); eGFR 49 ML/MIN
[2022-06-27 17:14] LABS: ETHANOL < 0.010 GM/DL (0.0-0.010)
[2022-06-27 17:21] VITALS: BP 135/87
[2022-06-27 17:30] LABS: CLARITY,URINE CLOUDY (Clear); COLOR,URINE YELLOW (Yellow); GLUCOSE, URINE NEGATIVE (Neg); KETONES,URINE TRACE mg/dl (Neg); LEUKOCYTE ESTERASE ,URINE MODERATE (Neg); NITRITES, URINE POSITIVE (Neg); OCCULT BLOOD,URINE MODERATE (Neg); PH,URINE 7.5 (4.8-8.0); PROTEIN,URINE 30 mg/dl (Neg); UROBILINOGEN,URINE 0.2 E.U/dL (0.2-1.0)
[2022-06-27 17:31] LABS: UA COLLECTION TYPE FOLEY CATH
[2022-06-27 17:38] LABS: URINE AMPHETAMINE SCREEN NEGATIVE (Neg); URINE BARBITUATE SCREEN NEGATIVE (Neg); URINE BENZODIAZEPINES SCREEN NEGATIVE (Neg); URINE CANNABINOID SCREEN NEGATIVE (Neg); URINE COCAINE SCREEN NEGATIVE (Neg); URINE METHADONE SCREEN NEGATIVE (Neg); URINE OPIATE SCREEN NEGATIVE (Neg); URINE PHENCYCLIDINE SCREEN NEGATIVE (Neg)
[2022-06-27 17:58] LABS: BACTERIA,URINE 4+ /HPF (Neg); RBC,URINE 50-100 /HPF (0-2); WBC,URINE TNTC /HPF (0-4)
[2022-06-27] MEDS ORDERED: CefTRIAXone/D5W-Rocephin 1gm 50 ML IV ONE (18:00)
[2022-06-27 18:01] LABS: SQUAMOUS EPITHELIAL CELL,UR FEW /LPF (FEW); WBC CLUMPS,URINE MODERATE /HPF (NEGATIVE)
[2022-06-27] MEDS ORDERED: CEPH-585 PO (18:06)
== END 2022-06-28 03:26 | disposition home or self-care (01) ==
LOC: ER 13:59
DX: R42 Dizziness and giddiness (principal); N39.0 Urinary tract infection, site not specified; E78.00 Pure hypercholesterolemia, unspecified; J45.909 Unspecified asthma, uncomplicated; E11.9 Type 2 diabetes mellitus without complications
CPT/HCPCS: 36415; 70450; 71045; 72170; 73564; 80053; 80305; 80320; 81001; 83605; 83735; 83880; 84484; 85025; 87077; 87088; 87186; 93005; 96365; 99285; J0696

== ENCOUNTER 2022-08-23 20:34 | Emergency (ER) | payer MEDICARE, MEDICAID ==
[~2022-08-23] VITALS: Ht 182.9 cm; Wt 80.0 kg
[2022-08-23 20:38] VITALS: BP 129/73
== END 2022-08-23 21:15 | disposition home or self-care (01) ==
LOC: ER 20:35
DX: T83.9XXA Unspecified complication of genitourinary prosthetic device, implant and graft, initial encounter (principal); E78.00 Pure hypercholesterolemia, unspecified; J45.909 Unspecified asthma, uncomplicated; E11.9 Type 2 diabetes mellitus without complications; F32.A Depression, unspecified; Z87.442 Personal history of urinary calculi; Z60.2 Problems related to living alone; Z79.82 Long term (current) use of aspirin; Z79.899 Other long term (current) drug therapy; Y84.6 Urinary catheterization as the cause of abnormal reaction of the patient, or of later complication, without mention of misadventure at the time of the procedure
CPT/HCPCS: 99281

== ENCOUNTER 2022-10-09 14:51 | Emergency (ER) | payer MEDICARE, MEDICAID ==
[~2022-10-09] VITALS: Ht 185.4 cm; Wt 72.4 kg
[2022-10-09] MEDS ORDERED: LIDOcaine 2% 10ml TOPICAL JELLY (Urojet) TP ONE (19:05)
[2022-10-09] MEDS ORDERED: LidoCAINE 2% Topical Jelly 11mL syringe TOP ONE (19:15)
[2022-10-09 21:22] LABS: CLARITY,URINE CLOUDY (Clear); COLOR,URINE STRAW (Yellow); GLUCOSE, URINE NEGATIVE (Neg); KETONES,URINE NEGATIVE (Neg); LEUKOCYTE ESTERASE ,URINE LARGE (Neg); NITRITES, URINE POSITIVE (Neg); OCCULT BLOOD,URINE LARGE (Neg); PH,URINE 5.5 (4.8-8.0); PROTEIN,URINE 30 mg/dl (Neg); UROBILINOGEN,URINE 0.2 E.U/dL (0.2-1.0)
[2022-10-09 21:27] LABS: UA COLLECTION TYPE FOLEY CATH
[2022-10-09 21:29] LABS: SQUAMOUS EPITHELIAL CELL,UR MANY /LPF (FEW)
[2022-10-09 21:30] LABS: FINE GRANULAR CAST 0-3 /LPF (NEGATIVE); HYALINE CASTS 0-3 /LPF (NEGATIVE); WBC,URINE TNTC /HPF (0-4)
[2022-10-09 21:31] LABS: BACTERIA,URINE 3+ /HPF (Neg); RBC,URINE TNTC /HPF (0-2); TRANSITIONAL EPI CELLS,URINE FEW /HPF
[2022-10-09] MEDS ORDERED: CEPH-585 PO (21:33)
[2022-10-09] MEDS ORDERED: cephalexin 500mg capsule PO ONE (21:35)
[2022-10-09 22:00] VITALS: BP 140/84
== END 2022-10-09 22:08 | disposition home or self-care (01) ==
LOC: ER 14:52
DX: N39.0 Urinary tract infection, site not specified (principal); T83.038A Leakage of other urinary catheter, initial encounter; E78.00 Pure hypercholesterolemia, unspecified; J45.909 Unspecified asthma, uncomplicated; E11.9 Type 2 diabetes mellitus without complications
CPT/HCPCS: 51702; 81001; 87077; 87088; 87186; 99284

== ENCOUNTER 2022-11-09 19:30 | Emergency (ER) | payer MEDICARE, MEDICAID ==
[~2022-11-09] VITALS: Ht 182.9 cm; Wt 75.0 kg
[2022-11-09 19:39] VITALS: BP 135/64
[2022-11-09 20:11] LABS: CLARITY,URINE CLOUDY (Clear); COLOR,URINE YELLOW (Yellow); GLUCOSE, URINE NEGATIVE (Neg); KETONES,URINE NEGATIVE (Neg); LEUKOCYTE ESTERASE ,URINE LARGE (Neg); NITRITES, URINE NEGATIVE (Neg); OCCULT BLOOD,URINE MODERATE (Neg); PROTEIN,URINE 30 mg/dl (Neg); UROBILINOGEN,URINE 0.2 E.U/dL (0.2-1.0)
[2022-11-09 20:16] LABS: UA COLLECTION TYPE FOLEY CATH
[2022-11-09 20:24] LABS: BACTERIA,URINE 4+ /HPF (Neg); MUCUS STRANDS NONE SEEN /LPF (Neg); RBC,URINE 50-100 /HPF (0-2); SQUAMOUS EPITHELIAL CELL,UR FEW /LPF (FEW); WBC,URINE 50-100 /HPF (0-4)
[2022-11-09 20:25] LABS: CAL OXALATE CRYSTALS 1+ /HPF (NEGATIVE)
[2022-11-09] MEDS ORDERED: cephalexin 250mg capsule PO ONE (21:05)
[2022-11-09] MEDS ORDERED: CEPH-585 PO (21:30)
== END 2022-11-09 21:38 | disposition home or self-care (01) ==
LOC: ER 19:31
DX: N39.0 Urinary tract infection, site not specified (principal); E78.00 Pure hypercholesterolemia, unspecified; J45.909 Unspecified asthma, uncomplicated; F31.9 Bipolar disorder, unspecified; Z87.448 Personal history of other diseases of urinary system; E11.9 Type 2 diabetes mellitus without complications
CPT/HCPCS: 51702; 81001; 87077; 87088; 87186; 99284

== ENCOUNTER 2023-02-25 09:33 | Emergency (ER) | payer MEDICARE, MEDICAID ==
[~2023-02-25] VITALS: Ht 182.9 cm; Wt 77.3 kg
[2023-02-25 09:44] VITALS: BP 152/74; PULSE 89; RESP 18; TEMP 98.4; O2SAT 98
[2023-02-25 12:10] LABS: UA COLLECTION TYPE FOLEY CATH
[2023-02-25 12:11] LABS: CLARITY,URINE TURBID (Clear); COLOR,URINE YELLOW (Yellow); GLUCOSE, URINE NEGATIVE (Neg); KETONES,URINE NEGATIVE (Neg); PH,URINE 7.5 (4.8-8.0); PROTEIN,URINE 300 mg/dl (Neg)
[2023-02-25 12:12] LABS: LEUKOCYTE ESTERASE ,URINE LARGE (Neg); NITRITES, URINE NEGATIVE (Neg); OCCULT BLOOD,URINE LARGE (Neg); UROBILINOGEN,URINE 0.2 E.U/dL (0.2-1.0)
[2023-02-25 12:13] LABS: BACTERIA,URINE 4+ /HPF (Neg); MUCUS STRANDS NONE SEEN /LPF (Neg); RBC,URINE TNTC /HPF (0-2); RENAL CELLS, URINE FEW /HPF; SQUAMOUS EPITHELIAL CELL,UR NONE SEEN /LPF (FEW); WBC CLUMPS,URINE MODERATE /HPF (NEGATIVE); WBC,URINE TNTC /HPF (0-4)
[2023-02-25] MEDS ORDERED: AMOX-117 PO (12:31)
[2023-02-25] MEDS ORDERED: amox tr/potassium clavulanate 875/125mg TAB PO ONE (12:35)
== END 2023-02-25 13:19 | disposition home or self-care (01) ==
LOC: ER 09:34
DX: T83.098A Other mechanical complication of other urinary catheter, initial encounter (principal); R33.9 Retention of urine, unspecified; N39.0 Urinary tract infection, site not specified; E78.00 Pure hypercholesterolemia, unspecified; J45.909 Unspecified asthma, uncomplicated; E11.9 Type 2 diabetes mellitus without complications; F32.A Depression, unspecified; Z87.442 Personal history of urinary calculi; Z79.899 Other long term (current) drug therapy; Z79.1 Long term (current) use of non-steroidal anti-inflammatories (NSAID); Z79.82 Long term (current) use of aspirin
CPT/HCPCS: 51702; 81001; 87077; 87088; 87186; 99284; A4314

== ENCOUNTER 2023-08-27 22:46 | Emergency (ER) | payer MEDICARE, MEDICAID ==
[~2023-08-27] VITALS: Ht 182.9 cm; Wt 79.5 kg
[2023-08-28] MEDS: oxybutynin 5mg tablet PO ONE (00:36)
[2023-08-28] MEDS: LidoCAINE 2% Topical Jelly 11mL syringe TOP ONE (00:36)
[2023-08-28 01:40] VITALS: BP 121/71; PULSE 79; RESP 18; TEMP 98.8; O2SAT 96
[2023-08-28 01:45] LABS: UA COLLECTION TYPE FOLEY CATH
[2023-08-28 01:47] LABS: CLARITY,URINE TURBID (Clear); COLOR,URINE YELLOW (Yellow); GLUCOSE, URINE NEGATIVE (Neg); KETONES,URINE NEGATIVE (Neg); OCCULT BLOOD,URINE LARGE (Neg); PROTEIN,URINE 300 mg/dl (Neg)
[2023-08-28 01:48] LABS: BILIRUBIN,URINE NEGATIVE (Neg); LEUKOCYTE ESTERASE ,URINE MODERATE (Neg); NITRITES, URINE NEGATIVE (Neg); UROBILINOGEN,URINE 0.2 E.U/dL (0.2-1.0)
[2023-08-28 01:53] LABS: BACTERIA,URINE 3+ /HPF (Neg); RBC,URINE TNTC /HPF (0-2); WBC,URINE TNTC /HPF (0-4)
[2023-08-28 01:54] LABS: AMORPHOUS PHOSPHATES 2+; SQUAMOUS EPITHELIAL CELL,UR FEW /LPF (FEW); TRANSITIONAL EPI CELLS,URINE FEW /HPF; TRIPLE PHOSPHATE CRYST 1+ /HPF (NEGATIVE)
[2023-08-28] MEDS ORDERED: CEPH-585 PO (02:01)
== END 2023-08-28 02:10 | disposition home or self-care (01) ==
LOC: ER 22:46
DX: T83.098A Other mechanical complication of other urinary catheter, initial encounter (principal); N39.0 Urinary tract infection, site not specified; E78.00 Pure hypercholesterolemia, unspecified; J45.909 Unspecified asthma, uncomplicated; E11.9 Type 2 diabetes mellitus without complications; Z79.82 Long term (current) use of aspirin; Z79.2 Long term (current) use of antibiotics; Z79.899 Other long term (current) drug therapy
CPT/HCPCS: 51702; 81001; 87077; 87088; 87186; 99284; A4314; A4340

== ENCOUNTER 2024-02-27 17:26 | Inpatient (IN) | payer MEDICARE, MEDICAID ==
[~2024-02-27] VITALS: Ht 182.9 cm; Wt 70.3 kg
[2024-02-27 18:10] LABS: ALBUMIN 2.1 G/DL (3.4-5.0); ANION GAP 12 (8-16); BLOOD UREA NITROGEN 22 MG/DL (7-18); CALCIUM 8.8 MG/DL (8.5-10.1); CHLORIDE 105 MMOL/L (99-107); CREATININE 1.84 MG/DL (0.60-1.10); GLUCOSE 191 MG/DL (70-104); POTASSIUM 3.8 MMOL/L (3.5-5.1); SODIUM 135 MMOL/L (135-145); TOTAL CARBON DIOXIDE 18.2 MMOL/L (24-32); eCRCL 34 ML/MIN; eGFR 36 ML/MIN
[2024-02-27 18:11] LABS: BASOPHILS % (AUTO) 0.2 % (0-1); EOSINOPHILS % (AUTO) 0.1 % (0-6); HEMATOCRIT 34.7 % (42.0-52.0); HEMOGLOBIN 11.1 g/dl (14.0-17.9); LYMPHOCYTES # (AUTO) 0.2 X10'3 (1.1-4.8); LYMPHOCYTES % (AUTO) 1.5 % (21-51); MEAN CORPUSCULAR HEMOGLOBIN 27.3 PG (27.0-31.0); MEAN CORPUSCULAR VOLUME 85.1 FL (78-98); MEAN PLATELET VOLUME 7.1 FL (7.4-10.4); MONOCYTES # (AUTO) 0.4 X10'3 (0-0.9); MONOCYTES % (AUTO) 2.8 % (2-12); NEUTROPHILS # (AUTO) 14.7 X10'3 (1.8-7.7); NEUTROPHILS % (AUTO) 95.4 % (42-75); PLATELET COUNT 334 X10'3 (140-440); RED BLOOD COUNT 4.08 X10'6 (4.70-6.10); WHITE BLOOD COUNT 15.5 X10'3 (4.5-11.0)
[2024-02-27] MEDS: CefTRIAXone 2gm/D5W 50ml BAG 50 ML IV ONE (18:42)
[2024-02-27] MEDS: normal saline 1000ml 1,000 ML IV ONE ×2 (18:44→19:51)
[2024-02-27] MEDS: acetaminophen 1,000mg/100ml IV 100 ML IV ONE (18:44)
[2024-02-27] MEDS ORDERED: magnesium hydroxide 30ml (MOM) UD suspension PO PRN (20:00)
[2024-02-27] MEDS ORDERED: potassium Cl 40MEQ/1/2NS 520ml 520 ML IV PRN (20:00)
[2024-02-27] MEDS ORDERED: mag hydrox/Alum hydrox/simeth 30ml oral suspension PO PRN (20:00)
[2024-02-27] MEDS: K and/or MAG REPLACEMENT MC SCH (20:00)
[2024-02-27] MEDS ORDERED: acetaminophen 325mg tablet PO PRN (20:00)
[2024-02-27] MEDS ORDERED: potassium Cl 20 mEq SR tablet PO PRN ×2 (20:00)
[2024-02-27] MEDS: docusate sod 100mg capsule PO SCH (20:00)
[2024-02-27] MEDS ORDERED: magnesium sulf-water 2g/50mL 50 ML IV PRN (20:00)
[2024-02-27] MEDS ORDERED: magnesium sulf-water 4G/100mL 100 ML IV PRN (20:00)
[2024-02-27] MEDS ORDERED: magnesium Cl slow-release 64mg tablet PO PRN (20:00)
[2024-02-27] MEDS ORDERED: morphine 2 MG/ML inj. syringe IV PRN ×2 (20:00)
[2024-02-27] MEDS ORDERED: ondansetron/PF 4mg/2ml inj IV PRN (20:00)
[2024-02-27] MEDS: heparin, porcine 5000 units/ml vial SQ SCH (20:19)
[2024-02-27] MEDS: normal saline 1000ml 1,000 ML IV SCH (20:59)
[2024-02-27 22:02] LABS: BILIRUBIN,URINE NEGATIVE (Neg); CLARITY,URINE CLOUDY (Clear); COLOR,URINE YELLOW (Yellow); GLUCOSE, URINE NEGATIVE (Neg); KETONES,URINE NEGATIVE (Neg); LEUKOCYTE ESTERASE ,URINE MODERATE (Neg); NITRITES, URINE POSITIVE (Neg); OCCULT BLOOD,URINE SMALL (Neg); PROTEIN,URINE 100 mg/dl (Neg); UROBILINOGEN,URINE 0.2 E.U/dL (0.2-1.0)
[2024-02-27 22:03] LABS: UA COLLECTION TYPE STRAIGHT CATH
[2024-02-27 22:15] LABS: BACTERIA,URINE 1+ /HPF (Neg); MUCUS STRANDS FEW /LPF (Neg); SQUAMOUS EPITHELIAL CELL,UR FEW /LPF (FEW)
[2024-02-27 22:17] LABS: FINE GRANULAR CAST 0-3 /LPF (NEGATIVE); TRANSITIONAL EPI CELLS,URINE FEW /HPF; WBC CLUMPS,URINE FEW /HPF (NEGATIVE); WBC,URINE 30-50 /HPF (0-4)
[2024-02-27] MEDS ORDERED: HYDR-3964 PO (22:17)
[2024-02-28] VITALS (7 sets, daily range): BP systolic 94–132; BP diastolic 45–56; PULSE 45–70; RESP 14–25; TEMP 97.3–98.1; O2SAT 93–100
[2024-02-28] MEDS ORDERED: nitroGLYCERIN 0.4mg SUBLingual tab SL PRN (07:20)
[2024-02-28 07:32] LABS: BASOPHILS % (AUTO) 0.5 % (0-1); EOSINOPHILS # (AUTO) 0.1 X10'3 (0-0.9); HEMATOCRIT 32.7 % (42.0-52.0); HEMOGLOBIN 10.4 g/dl (14.0-17.9); LYMPHOCYTES # (AUTO) 1.3 X10'3 (1.1-4.8); LYMPHOCYTES % (AUTO) 14.2 % (21-51); MEAN CORPUSCULAR HEMOGLOBIN 27.4 PG (27.0-31.0); MEAN CORPUSCULAR HGB CONC 31.9 g/dL (33.0-36.5); MEAN CORPUSCULAR VOLUME 85.9 FL (78-98); MEAN PLATELET VOLUME 7.4 FL (7.4-10.4); MONOCYTES # (AUTO) 0.9 X10'3 (0-0.9); MONOCYTES % (AUTO) 9.5 % (2-12); NEUTROPHILS # (AUTO) 6.9 X10'3 (1.8-7.7); NEUTROPHILS % (AUTO) 74.8 % (42-75); PLATELET COUNT 257 X10'3 (140-440); RED CELL DISTRIBUTION WIDTH 15.8 % (11.5-14.5); WHITE BLOOD COUNT 9.2 X10'3 (4.5-11.0)
[2024-02-28 07:54] LABS: ALANINE AMINOTRANSFERASE 17 U/L (12-78); ALBUMIN 1.8 G/DL (3.4-5.0); ALBUMIN/GLOBULIN RATIO 0.4 (1.1-1.5); ALKALINE PHOSPHATASE 133 IU/L (46-116); ANION GAP 4 (8-16); ASPARTATE AMINO TRANSFERASE 13 U/L (10-37); BILIRUBIN,TOTAL 0.4 MG/DL (0.1-1.0); BLOOD UREA NITROGEN 21 MG/DL (7-18); BUN/CREATININE RATIO 14.2 (10.0-20.0); CALCIUM 8.7 MG/DL (8.5-10.1); CHLORIDE 110 MMOL/L (99-107); CREATININE 1.48 MG/DL (0.60-1.10); GLUCOSE 103 MG/DL (70-104); MAGNESIUM 1.9 MG/DL (1.5-2.4); POTASSIUM 4.1 MMOL/L (3.5-5.1); SODIUM 138 MMOL/L (135-145); TOTAL CARBON DIOXIDE 24.3 MMOL/L (24-32); TOTAL PROTEIN 5.9 G/DL (6.4-8.2); eCRCL 42 ML/MIN; eGFR 46 ML/MIN
[2024-02-28] MEDS: pantoprazole 40mg Tablet.DR PO SCH (09:04)
[2024-02-28] MEDS: CefTRIAXone/D5W-Rocephin 1gm 50 ML IV SCH (09:04)
[2024-02-28] MEDS: atorvastatin 20mg tablet PO SCH (09:05)
[2024-02-28] MEDS: aspirin 81mg, enteric-coated 1 TAB TABLET.DR PO SCH (09:06)
[2024-02-28] MEDS: lactose-reduced food (Ensure High Protein) 237ml bottle PO SCH (17:30)
[2024-02-28] MEDS: tamsulosin 0.4mg capsule PO SCH (20:30)
[2024-02-29] VITALS (7 sets, daily range): BP systolic 96–111; BP diastolic 47–59; PULSE 63–70; RESP 12–16; TEMP 97.3–98.4; O2SAT 96–99
[2024-02-29 06:09] LABS: ALANINE AMINOTRANSFERASE 13 U/L (12-78); ALBUMIN 1.6 G/DL (3.4-5.0); ALBUMIN/GLOBULIN RATIO 0.4 (1.1-1.5); ALKALINE PHOSPHATASE 120 IU/L (46-116); ANION GAP 6 (8-16); ASPARTATE AMINO TRANSFERASE 13 U/L (10-37); BILIRUBIN,TOTAL 0.2 MG/DL (0.1-1.0); BLOOD UREA NITROGEN 28 MG/DL (7-18); BUN/CREATININE RATIO 19.2 (10.0-20.0); CALCIUM 8.5 MG/DL (8.5-10.1); CHLORIDE 106 MMOL/L (99-107); CREATININE 1.46 MG/DL (0.60-1.10); GLUCOSE 106 MG/DL (70-104); MAGNESIUM 1.8 MG/DL (1.5-2.4); POTASSIUM 4.2 MMOL/L (3.5-5.1); SODIUM 135 MMOL/L (135-145); TOTAL CARBON DIOXIDE 22.7 MMOL/L (24-32); TOTAL PROTEIN 5.4 G/DL (6.4-8.2); eCRCL 43 ML/MIN; eGFR 47 ML/MIN
[2024-02-29 06:23] LABS: BASOPHILS % (AUTO) 0.5 % (0-1); EOSINOPHILS # (AUTO) 0.1 X10'3 (0-0.9); HEMATOCRIT 29.7 % (42.0-52.0); HEMOGLOBIN 9.6 g/dl (14.0-17.9); LYMPHOCYTES # (AUTO) 1.2 X10'3 (1.1-4.8); LYMPHOCYTES % (AUTO) 12.9 % (21-51); MEAN CORPUSCULAR HEMOGLOBIN 27.4 PG (27.0-31.0); MEAN CORPUSCULAR HGB CONC 32.3 g/dL (33.0-36.5); MEAN CORPUSCULAR VOLUME 84.6 FL (78-98); MEAN PLATELET VOLUME 7.8 FL (7.4-10.4); MONOCYTES # (AUTO) 0.7 X10'3 (0-0.9); MONOCYTES % (AUTO) 7.1 % (2-12); NEUTROPHILS # (AUTO) 7.2 X10'3 (1.8-7.7); NEUTROPHILS % (AUTO) 78.5 % (42-75); PLATELET COUNT 275 X10'3 (140-440); RED BLOOD COUNT 3.51 X10'6 (4.70-6.10); RED CELL DISTRIBUTION WIDTH 15.9 % (11.5-14.5); WHITE BLOOD COUNT 9.2 X10'3 (4.5-11.0)
[2024-03-01] VITALS (7 sets, daily range): BP systolic 102–115; BP diastolic 56–75; PULSE 61–75; RESP 14–18; TEMP 97.4–98.4; O2SAT 97–99
[2024-03-01 06:23] LABS: BASOPHILS % (AUTO) 0.6 % (0-1); EOSINOPHILS # (AUTO) 0.1 X10'3 (0-0.9); EOSINOPHILS % (AUTO) 1.7 % (0-6); HEMATOCRIT 30.7 % (42.0-52.0); HEMOGLOBIN 10.2 g/dl (14.0-17.9); LYMPHOCYTES # (AUTO) 1.3 X10'3 (1.1-4.8); LYMPHOCYTES % (AUTO) 20.1 % (21-51); MEAN CORPUSCULAR HEMOGLOBIN 28.2 PG (27.0-31.0); MEAN CORPUSCULAR HGB CONC 33.2 g/dL (33.0-36.5); MEAN CORPUSCULAR VOLUME 84.7 FL (78-98); MEAN PLATELET VOLUME 7.9 FL (7.4-10.4); MONOCYTES # (AUTO) 0.5 X10'3 (0-0.9); MONOCYTES % (AUTO) 8.2 % (2-12); NEUTROPHILS # (AUTO) 4.5 X10'3 (1.8-7.7); NEUTROPHILS % (AUTO) 69.4 % (42-75); PLATELET COUNT 252 X10'3 (140-440); RED BLOOD COUNT 3.62 X10'6 (4.70-6.10); RED CELL DISTRIBUTION WIDTH 15.5 % (11.5-14.5); WHITE BLOOD COUNT 6.4 X10'3 (4.5-11.0)
[2024-03-01 06:42] LABS: ALANINE AMINOTRANSFERASE 17 U/L (12-78); ALBUMIN 1.6 G/DL (3.4-5.0); ALBUMIN/GLOBULIN RATIO 0.4 (1.1-1.5); ALKALINE PHOSPHATASE 134 IU/L (46-116); ANION GAP 5 (8-16); ASPARTATE AMINO TRANSFERASE 21 U/L (10-37); BILIRUBIN,TOTAL 0.2 MG/DL (0.1-1.0); BLOOD UREA NITROGEN 27 MG/DL (7-18); BUN/CREATININE RATIO 20.9 (10.0-20.0); CALCIUM 8.5 MG/DL (8.5-10.1); CHLORIDE 109 MMOL/L (99-107); CREATININE 1.29 MG/DL (0.60-1.10); GLUCOSE 100 MG/DL (70-104); MAGNESIUM 1.7 MG/DL (1.5-2.4); POTASSIUM 4.2 MMOL/L (3.5-5.1); SODIUM 136 MMOL/L (135-145); TOTAL CARBON DIOXIDE 22.5 MMOL/L (24-32); TOTAL PROTEIN 5.5 G/DL (6.4-8.2); eCRCL 48 ML/MIN; eGFR 54 ML/MIN
[2024-03-01 10:17] LABS: C-REACTIVE PROTEIN 9.13 MG/DL (0.0-0.5)
[2024-03-02 06:00] VITALS: BP 103/60; PULSE 62; RESP 14; TEMP 97.3; O2SAT 97
[2024-03-02 07:13] LABS: ALANINE AMINOTRANSFERASE 29 U/L (12-78); ALBUMIN 1.8 G/DL (3.4-5.0); ALBUMIN/GLOBULIN RATIO 0.4 (1.1-1.5); ALKALINE PHOSPHATASE 155 IU/L (46-116); ANION GAP 9 (8-16); ASPARTATE AMINO TRANSFERASE 30 U/L (10-37); BILIRUBIN,TOTAL 0.2 MG/DL (0.1-1.0); BLOOD UREA NITROGEN 29 MG/DL (7-18); BUN/CREATININE RATIO 22.7 (10.0-20.0); CALCIUM 8.6 MG/DL (8.5-10.1); CHLORIDE 109 MMOL/L (99-107); CREATININE 1.28 MG/DL (0.60-1.10); GLUCOSE 101 MG/DL (70-104); MAGNESIUM 1.9 MG/DL (1.5-2.4); POTASSIUM 4.4 MMOL/L (3.5-5.1); SODIUM 140 MMOL/L (135-145); TOTAL CARBON DIOXIDE 22.2 MMOL/L (24-32); TOTAL PROTEIN 5.9 G/DL (6.4-8.2); eCRCL 49 ML/MIN; eGFR 55 ML/MIN
[2024-03-02 08:00] VITALS: RESP 14; O2SAT 97
[2024-03-02 11:00] VITALS: BP 105/61; PULSE 70; RESP 14; TEMP 97.4; O2SAT 98
[2024-03-02] MEDS ORDERED: CEFD300C3 PO (12:43)
[2024-03-02 12:49] LABS: HEMATOCRIT 31.3 % (43.5-53.7); HEMOGLOBIN 10.2 G/DL (12.5-16.3); MEAN CORPUSCULAR HEMOGLOBIN 27.3 PG (27-31.2); MEAN CORPUSCULAR HGB CONC 32.7 % (32-36); MEAN CORPUSCULAR VOLUME 83.4 FL (81-97); PLATELET COUNT 333 X10'3 (130-400); RED BLOOD COUNT 3.76 X10'6 (4.30-5.90); RED CELL DISTRIBUTION WIDTH 15.3 % (11-16)
[2024-03-02 13:04] LABS: MM BASOPHILS % (MANUAL) 1 % (0-1); MM EOSINOPHILS % (MANUAL) 3 % (0-6); MM LYMPHOCYTES % (MANUAL) 21 % (21-51); MM MONOCYTES % (MANUAL) 4 % (2-12); MM NEUTROPHILS % (MANUAL) 71 % (42-75); MM TOTAL CELLS COUNTED 100
[2024-03-02 13:05] LABS: MM PLATELET ESTIMATE NORMAL; MM RBC MORPHOLOGY NORMAL
== END 2024-03-02 15:00 | disposition home or self-care (01) | DRG 871 ==
LOC: ER 17:27 → ED HOLD 20:07 → PCU 3S 02-28 00:41
PROVIDERS: ADMIT Internal Medicine Critical Care Medicine; ATTEND Internal Medicine
DX: A41.9 Sepsis, unspecified organism (principal); G93.41 Metabolic encephalopathy; N17.0 Acute kidney failure with tubular necrosis; N13.6 Pyonephrosis; N20.1 Calculus of ureter; J90 Pleural effusion, not elsewhere classified; K57.30 Diverticulosis of large intestine without perforation or abscess without bleeding; D64.9 Anemia, unspecified; E11.22 Type 2 diabetes mellitus with diabetic chronic kidney disease; N18.9 Chronic kidney disease, unspecified; E11.42 Type 2 diabetes mellitus with diabetic polyneuropathy; G47.30 Sleep apnea, unspecified; F32.A Depression, unspecified; E78.00 Pure hypercholesterolemia, unspecified; J45.909 Unspecified asthma, uncomplicated; N40.0 Benign prostatic hyperplasia without lower urinary tract symptoms; Z63.4 Disappearance and death of family member; Z87.442 Personal history of urinary calculi; Z82.3 Family history of stroke; Z82.49 Family history of ischemic heart disease and other diseases of the circulatory system; Z79.82 Long term (current) use of aspirin; Z79.899 Other long term (current) drug therapy
CPT/HCPCS: 36415; 70450; 71045; 72125; 74176; 76770; 80048; 80053; 81001; 83605; 83735; 84132; 84145; 85007; 85025; 85651; 86140; 87040; 87077; 87081; 87088; 87186; 93005; 96365; 96375; 97116; 97161; 97530; 97535; 99285; A6590; G0378; J0131; J0696; J1644; J7030

== ENCOUNTER 2024-08-25 11:52 | Emergency (ER) | payer MEDICARE, MEDICAID ==
[~2024-08-25] VITALS: Ht 182.9 cm; Wt 54.8 kg
[~2024-08-25 11:52] MED LIST changes: +HYDR-3964 PO; -MAGN400C PO; -OMEP40CA21 PO
[2024-08-25 11:55] VITALS: BP 140/77; PULSE 80; TEMP 97.8; O2SAT 98
[2024-08-25 15:10] VITALS: RESP 18
[2024-08-25] MEDS: ketorolac trometh 15mg/ml vial 15 MG/ML ML IM ONE (15:10)
== END 2024-08-25 15:24 | disposition home or self-care (01) ==
LOC: ER 11:52
DX: S80.211A Abrasion, right knee, initial encounter (principal); M79.2 Neuralgia and neuritis, unspecified; R42 Dizziness and giddiness; E11.42 Type 2 diabetes mellitus with diabetic polyneuropathy; E78.00 Pure hypercholesterolemia, unspecified; G47.30 Sleep apnea, unspecified; J45.909 Unspecified asthma, uncomplicated; F32.A Depression, unspecified; Z87.442 Personal history of urinary calculi; Z79.82 Long term (current) use of aspirin; Z79.899 Other long term (current) drug therapy; Z60.2 Problems related to living alone; W18.39XA Other fall on same level, initial encounter; Y93.89 Activity, other specified; Y92.89 Other specified places as the place of occurrence of the external cause; Y99.8 Other external cause status
CPT/HCPCS: 96372; 99284; J1885

== ENCOUNTER 2024-09-28 10:10 | Inpatient (IN) | payer MEDICARE, MEDICAID ==
[2024-09-28] VITALS (17 sets, daily range): BP systolic 83–107; BP diastolic 45–65; PULSE 47–66; RESP 12–22; TEMP 97.4–97.8; O2SAT 96–99
[~2024-09-28] VITALS: Ht 177.8 cm; Wt 61.4 kg
[2024-09-28 10:56] LABS: BASOPHILS % (AUTO) 0 % (0-1); EOSINOPHILS % (AUTO) 0 % (0-6); HEMATOCRIT 40.2 % (42.0-52.0); HEMOGLOBIN 12.9 g/dl (14.0-17.9); LYMPHOCYTES # (AUTO) 0.3 X10'3 (1.1-4.8); LYMPHOCYTES % (AUTO) 1.5 % (21-51); MEAN CORPUSCULAR HEMOGLOBIN 28.4 PG (27.0-31.0); MEAN CORPUSCULAR HGB CONC 32.1 g/dL (33.0-36.5); MEAN CORPUSCULAR VOLUME 88.5 FL (78-98); MEAN PLATELET VOLUME 8.1 FL (7.4-10.4); MONOCYTES # (AUTO) 1.1 X10'3 (0-0.9); MONOCYTES % (AUTO) 4.7 % (2-12); NEUTROPHILS % (AUTO) 93.8 % (42-75); PLATELET COUNT 178 X10'3 (140-440); RED BLOOD COUNT 4.54 X10'6 (4.70-6.10); RED CELL DISTRIBUTION WIDTH 15.3 % (11.5-14.5); WHITE BLOOD COUNT 22.3 X10'3 (4.5-11.0)
[2024-09-28 11:13] LABS: ALBUMIN 2.3 G/DL (3.4-5.0); ANION GAP 14 (8-16); BLOOD UREA NITROGEN 53 MG/DL (7-18); BUN/CREATININE RATIO 14.7 (10.0-20.0); CALCIUM 9.5 MG/DL (8.5-10.1); CHLORIDE 108 MMOL/L (99-107); GLUCOSE 127 MG/DL (70-104); POTASSIUM 4.2 MMOL/L (3.5-5.1); SODIUM 142 MMOL/L (135-145); TOTAL CARBON DIOXIDE 19.8 MMOL/L (24-32); eCRCL 15 ML/MIN; eGFR 17 ML/MIN
[2024-09-28 11:24] LABS: PLATELET ESTIMATE NORMAL; TOTAL CELLS COUNTED 100
[2024-09-28 11:37] LABS: BILIRUBIN,URINE NEGATIVE (Neg); CLARITY,URINE TURBID (Clear); COLOR,URINE YELLOW (Yellow); GLUCOSE, URINE NEGATIVE (Neg); KETONES,URINE TRACE mg/dl (Neg); LEUKOCYTE ESTERASE ,URINE MODERATE (Neg); NITRITES, URINE NEGATIVE (Neg); OCCULT BLOOD,URINE MODERATE (Neg); PH,URINE 7.5 (4.8-8.0); PROTEIN,URINE 100 mg/dl (Neg); UROBILINOGEN,URINE 0.2 E.U/dL (0.2-1.0)
[2024-09-28 11:38] LABS: UA COLLECTION TYPE STRAIGHT CATH
[2024-09-28] MEDS: normal saline 1000ml 1,000 ML IV ONE (11:43)
[2024-09-28 11:45] LABS: WBC,URINE 20-30 /HPF (0-4)
[2024-09-28 11:46] LABS: AMORPHOUS PHOSPHATES 1+; BACTERIA,URINE 4+ /HPF (Neg); SQUAMOUS EPITHELIAL CELL,UR FEW /LPF (FEW); TRANSITIONAL EPI CELLS,URINE FEW /HPF; WBC CLUMPS,URINE FEW /HPF (NEGATIVE)
[2024-09-28] MEDS: CefTRIAXone 2gm/D5W 50ml BAG 50 ML IV ONE (13:07)
[2024-09-28] MEDS: ringers solution, lacted 1,000 ML IV ONE ×2 (13:07→13:59)
[2024-09-28] MEDS: piperacillin/tazo 4.5gm/100ml 100 ML IV ONE (14:52)
[2024-09-28] MEDS ORDERED: potassium Cl 40MEQ/1/2NS 520ml 520 ML IV PRN (15:30)
[2024-09-28] MEDS ORDERED: magnesium Cl slow-release 64mg tablet PO PRN (15:30)
[2024-09-28] MEDS ORDERED: ondansetron 4mg rapidly disintigrating tab PO PRN (15:30)
[2024-09-28] MEDS ORDERED: metoclopramide 5 mg/ml inj IV PRN (15:30)
[2024-09-28] MEDS ORDERED: mag hydrox/Alum hydrox/simeth 30ml oral suspension PO PRN (15:30)
[2024-09-28] MEDS ORDERED: acetaminophen 325mg tablet PO PRN (15:30)
[2024-09-28] MEDS ORDERED: ondansetron/PF 4mg/2ml inj IV PRN ×2 (15:30→16:40)
[2024-09-28] MEDS ORDERED: magnesium hydroxide 30ml (MOM) UD suspension PO PRN (15:30)
[2024-09-28] MEDS ORDERED: potassium Cl 20 mEq SR tablet PO PRN ×2 (15:30)
[2024-09-28] MEDS ORDERED: magnesium sulf-water 4G/100mL 100 ML IV PRN (15:30)
[2024-09-28] MEDS ORDERED: magnesium sulf-water 2g/50mL 50 ML IV PRN (15:30)
[2024-09-28] MEDS ORDERED: iohexol 350MG/ML 100ml bottle IV ONE (16:29)
[2024-09-28] MEDS ORDERED: sevoflurane 250ml liquid IH ONE (16:34)
[2024-09-28] MEDS ORDERED: morphine 4 MG/ML inj SYRINge IV PRN (16:40)
[2024-09-28] MEDS ORDERED: proCHLORperazine 10 MG/2 ml inj IV PRN (16:40)
[2024-09-28] MEDS ORDERED: meperidine/PF 100mg/ml syringe IV PRN ×3 (16:40)
[2024-09-28] MEDS ORDERED: labetalol 20mg/4ml (5mg/ml) syringe IV PRN (16:40)
[2024-09-28] MEDS ORDERED: morphine 2 MG/ML inj. syringe IV PRN (16:40)
[2024-09-28] MEDS ORDERED: enalaprilat 1.25mg/ml 2ml vial IV PRN (16:40)
[2024-09-28] MEDS: ringers solution, lacted 1,000 ML IV SCH (16:40)
[2024-09-28] MEDS ORDERED: fentaNYL/PF 50MCG/1 ML 2ML syringe ONE (16:46)
[2024-09-28] MEDS ORDERED: midazolam 1 mg/ML 2ml injection ONE (16:46)
[2024-09-28] MEDS ORDERED: propofol inj 20 ML IV ONE (17:06)
[2024-09-28] MEDS: K and/or MAG REPLACEMENT MC SCH (20:00)
[2024-09-28] MEDS: docusate sod 100mg capsule PO SCH (22:03)
[2024-09-28] MEDS: tamsulosin 0.4mg capsule PO SCH (22:03)
[2024-09-28] MEDS: heparin, porcine 5000 units/ml vial SQ SCH (22:26)
[2024-09-28] MEDS: piperacillin/tazo 3.375gm/50ml 50 ML IV SCH (22:48)
[2024-09-29 06:00] VITALS: BP 111/54; PULSE 56; RESP 24; TEMP 98.7; O2SAT 96
[2024-09-29 06:10] LABS: BASOPHILS % (AUTO) 0 % (0-1); EOSINOPHILS % (AUTO) 0.2 % (0-6); HEMATOCRIT 32.5 % (42.0-52.0); HEMOGLOBIN 10.7 g/dl (14.0-17.9); LYMPHOCYTES # (AUTO) 0.4 X10'3 (1.1-4.8); LYMPHOCYTES % (AUTO) 3.2 % (21-51); MEAN CORPUSCULAR HEMOGLOBIN 29.2 PG (27.0-31.0); MEAN CORPUSCULAR HGB CONC 33.1 g/dL (33.0-36.5); MEAN CORPUSCULAR VOLUME 88.2 FL (78-98); MEAN PLATELET VOLUME 8.4 FL (7.4-10.4); MONOCYTES # (AUTO) 0.3 X10'3 (0-0.9); MONOCYTES % (AUTO) 2.6 % (2-12); NEUTROPHILS # (AUTO) 12.5 X10'3 (1.8-7.7); PLATELET COUNT 116 X10'3 (140-440); RED BLOOD COUNT 3.68 X10'6 (4.70-6.10); WHITE BLOOD COUNT 13.3 X10'3 (4.5-11.0)
[2024-09-29 06:47] LABS: ALANINE AMINOTRANSFERASE 13 U/L (12-78); ALBUMIN 1.6 G/DL (3.4-5.0); ALBUMIN/GLOBULIN RATIO 0.4 (1.1-1.5); ALKALINE PHOSPHATASE 140 IU/L (46-116); ANION GAP 11 (8-16); ASPARTATE AMINO TRANSFERASE 23 U/L (10-37); BILIRUBIN,TOTAL 0.3 MG/DL (0.1-1.0); BLOOD UREA NITROGEN 56 MG/DL (7-18); BUN/CREATININE RATIO 21.1 (10.0-20.0); CALCIUM 8.1 MG/DL (8.5-10.1); CHLORIDE 111 MMOL/L (99-107); CREATININE 2.65 MG/DL (0.60-1.10); GLUCOSE 133 MG/DL (70-104); MAGNESIUM 1.6 MG/DL (1.5-2.4); POTASSIUM 4.3 MMOL/L (3.5-5.1); SODIUM 142 MMOL/L (135-145); TOTAL CARBON DIOXIDE 19.8 MMOL/L (24-32); TOTAL PROTEIN 5.2 G/DL (6.4-8.2); eCRCL 21 ML/MIN; eGFR 24 ML/MIN
[2024-09-29 10:00] VITALS: BP 100/60; PULSE 50; RESP 16; TEMP 98.5; O2SAT 98
[2024-09-29] MEDS: ringers solution, lacted 1,000 ML IV SCH (11:40)
[2024-09-29 18:39] VITALS: BP 101/54; PULSE 62; RESP 24; TEMP 98.4; O2SAT 96
[2024-09-29 20:00] VITALS: RESP 14; O2SAT 96
[2024-09-29 22:00] VITALS: BP 113/51; PULSE 59; RESP 14; TEMP 98.4; O2SAT 96
[2024-09-30] VITALS (8 sets, daily range): BP systolic 101–121; BP diastolic 51–90; PULSE 50–70; RESP 14–21; TEMP 97.5–98.5; O2SAT 96–98
[2024-09-30] MEDS: HYDROcodone/acetaminophen 5mg/325mg tablet PO PRN (02:39)
[2024-09-30 06:05] LABS: BASOPHILS % (AUTO) 0 % (0-1); EOSINOPHILS % (AUTO) 0.1 % (0-6); HEMATOCRIT 32.4 % (42.0-52.0); HEMOGLOBIN 10.5 g/dl (14.0-17.9); LYMPHOCYTES # (AUTO) 0.8 X10'3 (1.1-4.8); LYMPHOCYTES % (AUTO) 5.6 % (21-51); MEAN CORPUSCULAR HEMOGLOBIN 28.3 PG (27.0-31.0); MEAN CORPUSCULAR HGB CONC 32.3 g/dL (33.0-36.5); MEAN CORPUSCULAR VOLUME 87.4 FL (78-98); MEAN PLATELET VOLUME 8.9 FL (7.4-10.4); MONOCYTES # (AUTO) 0.7 X10'3 (0-0.9); MONOCYTES % (AUTO) 5.2 % (2-12); NEUTROPHILS # (AUTO) 12.1 X10'3 (1.8-7.7); NEUTROPHILS % (AUTO) 89.1 % (42-75); PLATELET COUNT 121 X10'3 (140-440); RED BLOOD COUNT 3.71 X10'6 (4.70-6.10); RED CELL DISTRIBUTION WIDTH 15.1 % (11.5-14.5); WHITE BLOOD COUNT 13.6 X10'3 (4.5-11.0)
[2024-09-30 06:23] LABS: ALANINE AMINOTRANSFERASE 13 U/L (12-78); ALBUMIN 1.5 G/DL (3.4-5.0); ALBUMIN/GLOBULIN RATIO 0.4 (1.1-1.5); ALKALINE PHOSPHATASE 117 IU/L (46-116); ANION GAP 10 (8-16); ASPARTATE AMINO TRANSFERASE 19 U/L (10-37); BILIRUBIN,TOTAL 0.2 MG/DL (0.1-1.0); BLOOD UREA NITROGEN 70 MG/DL (7-18); CALCIUM 8.1 MG/DL (8.5-10.1); CHLORIDE 110 MMOL/L (99-107); CREATININE 2.41 MG/DL (0.60-1.10); GLUCOSE 132 MG/DL (70-104); MAGNESIUM 1.8 MG/DL (1.5-2.4); POTASSIUM 4.6 MMOL/L (3.5-5.1); SODIUM 139 MMOL/L (135-145); TOTAL CARBON DIOXIDE 19.4 MMOL/L (24-32); TOTAL PROTEIN 4.9 G/DL (6.4-8.2); eCRCL 23 ML/MIN; eGFR 26 ML/MIN
[2024-09-30] MEDS ORDERED: nitroGLYCERIN 0.4mg SUBLingual tab SL PRN (22:20)
[2024-09-30] MEDS ORDERED: HYDROcodone/acetaminophen 5mg/325mg tablet PO PRN (22:20)
[2024-10-01] VITALS (8 sets, daily range): BP systolic 115–133; BP diastolic 54–65; PULSE 50–58; RESP 15–20; TEMP 97.6–98.2; O2SAT 94–98
[2024-10-01] MEDS ORDERED: non-formulary drug (Pregabalin (Lyrica) 1 CAP) PO SCH
[2024-10-01 06:18] LABS: BASOPHILS % (AUTO) 0.2 % (0-1); EOSINOPHILS # (AUTO) 0.1 X10'3 (0-0.9); EOSINOPHILS % (AUTO) 1.5 % (0-6); HEMATOCRIT 35.5 % (42.0-52.0); HEMOGLOBIN 11.9 g/dl (14.0-17.9); LYMPHOCYTES # (AUTO) 1.4 X10'3 (1.1-4.8); LYMPHOCYTES % (AUTO) 20.6 % (21-51); MEAN CORPUSCULAR HGB CONC 33.4 g/dL (33.0-36.5); MEAN CORPUSCULAR VOLUME 86.8 FL (78-98); MONOCYTES # (AUTO) 0.5 X10'3 (0-0.9); MONOCYTES % (AUTO) 6.8 % (2-12); NEUTROPHILS # (AUTO) 4.9 X10'3 (1.8-7.7); NEUTROPHILS % (AUTO) 70.9 % (42-75); PLATELET COUNT 133 X10'3 (140-440); RED BLOOD COUNT 4.09 X10'6 (4.70-6.10)
[2024-10-01 06:25] LABS: ALANINE AMINOTRANSFERASE 22 U/L (12-78); ALBUMIN 1.6 G/DL (3.4-5.0); ALBUMIN/GLOBULIN RATIO 0.5 (1.1-1.5); ALKALINE PHOSPHATASE 116 IU/L (46-116); ANION GAP 6 (8-16); ASPARTATE AMINO TRANSFERASE 21 U/L (10-37); BILIRUBIN,TOTAL 0.2 MG/DL (0.1-1.0); BLOOD UREA NITROGEN 65 MG/DL (7-18); BUN/CREATININE RATIO 30.4 (10.0-20.0); CALCIUM 8.2 MG/DL (8.5-10.1); CHLORIDE 110 MMOL/L (99-107); CREATININE 2.14 MG/DL (0.60-1.10); GLUCOSE 92 MG/DL (70-104); MAGNESIUM 1.8 MG/DL (1.5-2.4); POTASSIUM 4.9 MMOL/L (3.5-5.1); SODIUM 140 MMOL/L (135-145); TOTAL CARBON DIOXIDE 24.1 MMOL/L (24-32); TOTAL PROTEIN 5.1 G/DL (6.4-8.2); eCRCL 25 ML/MIN; eGFR 30 ML/MIN
[2024-10-01] MEDS: aspirin 81mg, enteric-coated 1 TAB TABLET.DR PO SCH (08:07)
[2024-10-01] MEDS: atorvastatin 20mg tablet PO SCH (08:07)
[2024-10-01 08:42] LABS: PLATELET ESTIMATE DECREASED; TOTAL CELLS COUNTED 100
[2024-10-01] MEDS: CefTRIAXone 2gm/D5W 50ml BAG 50 ML IV SCH (09:17)
[2024-10-01] MEDS: tamsulosin 0.4mg capsule PO SCH (20:24)
[2024-10-02 06:00] VITALS: BP 115/57; PULSE 55; RESP 17; TEMP 97.7; O2SAT 99
[2024-10-02 06:45] LABS: BASOPHILS % (AUTO) 0.8 % (0-1); EOSINOPHILS # (AUTO) 0.1 X10'3 (0-0.9); EOSINOPHILS % (AUTO) 2.6 % (0-6); HEMATOCRIT 37.3 % (42.0-52.0); HEMOGLOBIN 12.2 g/dl (14.0-17.9); LYMPHOCYTES # (AUTO) 1.3 X10'3 (1.1-4.8); LYMPHOCYTES % (AUTO) 23.4 % (21-51); MEAN CORPUSCULAR HEMOGLOBIN 28.7 PG (27.0-31.0); MEAN CORPUSCULAR HGB CONC 32.8 g/dL (33.0-36.5); MEAN CORPUSCULAR VOLUME 87.4 FL (78-98); MEAN PLATELET VOLUME 8.4 FL (7.4-10.4); MONOCYTES # (AUTO) 0.4 X10'3 (0-0.9); MONOCYTES % (AUTO) 6.7 % (2-12); NEUTROPHILS # (AUTO) 3.7 X10'3 (1.8-7.7); NEUTROPHILS % (AUTO) 66.5 % (42-75); PLATELET COUNT 156 X10'3 (140-440); RED BLOOD COUNT 4.27 X10'6 (4.70-6.10); RED CELL DISTRIBUTION WIDTH 15.1 % (11.5-14.5); WHITE BLOOD COUNT 5.5 X10'3 (4.5-11.0)
[2024-10-02 07:10] LABS: ALANINE AMINOTRANSFERASE 25 U/L (12-78); ALBUMIN 1.7 G/DL (3.4-5.0); ALBUMIN/GLOBULIN RATIO 0.5 (1.1-1.5); ALKALINE PHOSPHATASE 126 IU/L (46-116); ANION GAP 5 (8-16); ASPARTATE AMINO TRANSFERASE 22 U/L (10-37); BILIRUBIN,TOTAL 0.1 MG/DL (0.1-1.0); BLOOD UREA NITROGEN 56 MG/DL (7-18); BUN/CREATININE RATIO 28.4 (10.0-20.0); CALCIUM 8.1 MG/DL (8.5-10.1); CHLORIDE 110 MMOL/L (99-107); CREATININE 1.97 MG/DL (0.60-1.10); GLUCOSE 107 MG/DL (70-104); MAGNESIUM 1.7 MG/DL (1.5-2.4); POTASSIUM 5.4 MMOL/L (3.5-5.1); SODIUM 140 MMOL/L (135-145); TOTAL CARBON DIOXIDE 24.9 MMOL/L (24-32); TOTAL PROTEIN 5.2 G/DL (6.4-8.2); eCRCL 28 ML/MIN; eGFR 33 ML/MIN
[2024-10-02 07:36] LABS: TOTAL CELLS COUNTED 100
[2024-10-02 07:37] LABS: ANISOCYTOSIS 1+; PLATELET ESTIMATE NORMAL
[2024-10-02 10:00] VITALS: BP 110/68; PULSE 87; RESP 15; TEMP 98.2; O2SAT 98
[2024-10-02 18:00] VITALS: BP 153/74; PULSE 60; RESP 18; TEMP 97.3; O2SAT 98
[2024-10-02 20:00] VITALS: RESP 18; O2SAT 98
[2024-10-02 22:00] VITALS: BP 132/64; PULSE 59; RESP 16; TEMP 98; O2SAT 99
[2024-10-03 06:00] VITALS: BP 129/64; PULSE 55; RESP 16; TEMP 97.8; O2SAT 97
[2024-10-03 06:06] LABS: BASOPHILS % (AUTO) 0.4 % (0-1); EOSINOPHILS # (AUTO) 0.2 X10'3 (0-0.9); EOSINOPHILS % (AUTO) 3.7 % (0-6); HEMATOCRIT 37.1 % (42.0-52.0); HEMOGLOBIN 12.3 g/dl (14.0-17.9); LYMPHOCYTES # (AUTO) 1.4 X10'3 (1.1-4.8); LYMPHOCYTES % (AUTO) 21.7 % (21-51); MEAN CORPUSCULAR HEMOGLOBIN 28.8 PG (27.0-31.0); MEAN CORPUSCULAR HGB CONC 33.2 g/dL (33.0-36.5); MEAN CORPUSCULAR VOLUME 86.7 FL (78-98); MEAN PLATELET VOLUME 8.2 FL (7.4-10.4); MONOCYTES # (AUTO) 0.3 X10'3 (0-0.9); MONOCYTES % (AUTO) 4.8 % (2-12); NEUTROPHILS # (AUTO) 4.4 X10'3 (1.8-7.7); NEUTROPHILS % (AUTO) 69.4 % (42-75); PLATELET COUNT 188 X10'3 (140-440); RED BLOOD COUNT 4.28 X10'6 (4.70-6.10); RED CELL DISTRIBUTION WIDTH 14.5 % (11.5-14.5); WHITE BLOOD COUNT 6.3 X10'3 (4.5-11.0)
[2024-10-03 06:54] LABS: ALANINE AMINOTRANSFERASE 23 U/L (12-78); ALBUMIN 1.8 G/DL (3.4-5.0); ALBUMIN/GLOBULIN RATIO 0.5 (1.1-1.5); ALKALINE PHOSPHATASE 130 IU/L (46-116); ANION GAP 7 (8-16); ASPARTATE AMINO TRANSFERASE 24 U/L (10-37); BILIRUBIN,TOTAL 0.1 MG/DL (0.1-1.0); BLOOD UREA NITROGEN 47 MG/DL (7-18); CALCIUM 8.4 MG/DL (8.5-10.1); CHLORIDE 109 MMOL/L (99-107); CREATININE 1.81 MG/DL (0.60-1.10); GLUCOSE 100 MG/DL (70-104); POTASSIUM 4.9 MMOL/L (3.5-5.1); SODIUM 141 MMOL/L (135-145); TOTAL CARBON DIOXIDE 24.7 MMOL/L (24-32); TOTAL PROTEIN 5.3 G/DL (6.4-8.2); eCRCL 30 ML/MIN; eGFR 37 ML/MIN
[2024-10-03 07:22] LABS: PLATELET ESTIMATE NORMAL; TOTAL CELLS COUNTED 100
[2024-10-03 09:17] VITALS: RESP 18; O2SAT 98
[2024-10-03 10:00] VITALS: BP 105/51; PULSE 70; RESP 16; TEMP 98.1; O2SAT 97
[2024-10-03 11:49] VITALS: RESP 16
== END 2024-10-03 17:25 | DRG 853 ==
LOC: ER 10:11 → ORTHO 4S 15:35 → UNDOADMIN 16:58 → ORTHO 4S 16:58
PROVIDERS: ADMIT Nurse Practitioner Family; ATTEND Nurse Practitioner Family
PROC: BT141ZZ Fluoroscopy of Kidneys, Ureters and Bladder using Low Osmolar Contrast (ICD-10-PCS; 2024-09-28)
PROC: 0T788DZ Dilation of Bilateral Ureters with Intraluminal Device, Via Natural or Artificial Opening Endoscopic (ICD-10-PCS; principal; 2024-09-28 16:34)
PROC: 05HB33Z Insertion of Infusion Device into Right Basilic Vein, Percutaneous Approach (ICD-10-PCS; 2024-10-02)
PROC: B54MZZA Ultrasonography of Right Upper Extremity Veins, Guidance (ICD-10-PCS; 2024-10-02)
DX: A41.51 Sepsis due to Escherichia coli [E. coli] (principal); E43 Unspecified severe protein-calorie malnutrition; N17.0 Acute kidney failure with tubular necrosis; R65.21 Severe sepsis with septic shock; N13.6 Pyonephrosis; Z16.23 Resistance to quinolones and fluoroquinolones; Z68.1 Body mass index [BMI] 19.9 or less, adult; E11.42 Type 2 diabetes mellitus with diabetic polyneuropathy; E78.00 Pure hypercholesterolemia, unspecified; F32.A Depression, unspecified; J45.909 Unspecified asthma, uncomplicated; N18.9 Chronic kidney disease, unspecified; N40.0 Benign prostatic hyperplasia without lower urinary tract symptoms; E11.22 Type 2 diabetes mellitus with diabetic chronic kidney disease; Z79.899 Other long term (current) drug therapy; Z79.82 Long term (current) use of aspirin
CPT/HCPCS: 36410; 36415; 71045; 74176; 74420; 76000; 76937; 80048; 80053; 81001; 82948; 83605; 83735; 84145; 85007; 85025; 85651; 87040; 87077; 87081; 87088; 87186; 93005; 96361; 96365; 96366; 96367; 97116; 97161; 97530; 99291; A4338; A4357; A4618; A5200; C1751; C1758; C1769; C2617; G0378; J0696; J1100; J1644; J2003; J2250; J2405; J2543; J2704; J3010; J7030; J7070; J7120; Q9967

== ENCOUNTER 2024-12-18 20:05 | Inpatient (IN) | payer MEDICARE, MEDICAID ==
[~2024-12-18] VITALS: Ht 182.9 cm; Wt 72.0 kg
[~2024-12-18 20:05] MED LIST changes: -FLO0.4C PO; +TAMS-55 PO
--- NOTE | 2024-12-18 21:53 | RADIOLOGY REPORT ---
CHEST RADIOGRAPH Indication: KNEE PAIN Technique: Single frontal view of the chest was obtained COMPARISON: DI CHEST,SINGLE VIEW on DOS: 09/28/24 FINDINGS: Lines and Tubes: None Lungs: Clear Pleura: No effusion. No pneumothorax. Cardiomediastinal contours: Unremarkable IMPRESSION: No acute disease.
--- NOTE | 2024-12-18 21:54 | RADIOLOGY REPORT ---
CLINICAL INDICATION: KNEE PAIN LEFT TECHNIQUE: DI KNEE, COMP 4 VW MIN Comparison: KNEE, COMP 4 VW MIN on DOS: 06/27/22 FINDINGS: No osseous or joint abnormality identified with no joint effusion, fracture or dislocation. Joint spa devyn are preserved. IMPRESSION: No abnormality demonstrated.
--- NOTE | 2024-12-18 22:06 | Physician Documentation ---
History of Present Illness ~ Chief Complaint: Knee Pain Stated Complaint: WEAKNESS Time Seen by MD: 21:27 Primary Medical Doctor: ORALIA HOBBS This 79-year-old male presents with left knee pain and left lateral rib pain following a fall while getting up off the toilet striking left knee and left chest on bath tub, patient reports no head strike and no loss of consciousness. Patient reports that fall was caused due to losing his balance while getting off the toilet, patient reports a normally ambulates with a walker though has been feeling weaker than normal. Patient reports that he was discharged from [facility] this morning. Patient reports history of chronic bilateral knee pain. I spoke to patient's significant other who reports patient has been weak all day today though is at his mental baseline, she reports he is normally a little slow to answer questions especially when he is tired. Patient's significant other reports that he was hospitalized at [facility] for approximately three months due to frequent UTIs requiring IV antibiotics. Tetanus witin 5 years: Yes Medication Reconciliation Allergies: Coded Allergies: No Known Allergies (Unverified , 05/31/24) Scheduled Aspirin (Aspir 81), 1 TAB PO DAILY, (Reported) Atorvastatin Calcium (LIPITOR tablet), 20 MG PO DAILY, (Reported) Pregabalin (Lyrica), 1 CAP PO Q8H, (Reported) Tamsulosin Hcl* (Flomax*), 2 CAP PO HS, (Reported) Scheduled PRN Hydrocodone Bit/Acetaminophen (Hydrocodon-Acetaminophen 5-325), 1 TAB PO Q4H PRN for pain, (Reported) Nitroglycerin SL* (Nitrostat SL*), 1 TAB SL Q5MIN PRN for Chest pain Q5min PRNx3-call MD, (Reported) Past Medical History Past Medical History: Peripheral Neuropathy, Angina, High Cholesterol, Asthma, Sleep Apnea, Constipation, BPH, Hernia, Kidney Stones, Diabetes, Depression Past Surgical History: no surgical history Patient History: FH: heart attack MOTHER (PER PT THEY ) ( in her 80s) FH: stroke FATHER (PER PT THEY ) ( at 49) Drug Use: none Lives with: Alone Lives In: Home Occupation: retired Physical Exam Vital Signs: Temperature: 98.2, Source: Oral, Heart Rate: 78, Respiratory Rate: 18, BP: 137/76, Pulse Oximetry: 97, Weight: 72.000 Physical Exam VITALS: Reviewed and as above. GENERAL: Alert and oriented x4, nontoxic appearing, no apparent distress. HEENT: Atraumatic, no tenderness to palpation to head or neck RESPIRATORY: No increased work of breathing, no respiratory distress, speaking in full clear sentences, clear lung sounds in all abdalla CV: Regular rate and rhythm no murmur GI: Nondistended, nontender to palpation MUSCULOSKELETAL: Mild erythema to the lateral aspect of left knee, not significantly tender to palpation, range of motion intact, brisk capillary refill distal to injury, sensation intact distal to the injury, no edema, no ecchymosis to left knee. Progress Progress Note I was informed by nursing staff at 2017 that patient was too weak to get out of bed for gait test 0258: Spoke with hospitalist resident Dr. Augustin, who kindly accepts patient for admission Results/Orders Results/Orders Orders - LA MERRILL Gait Test (12/18/24 22:01) Urinalysis, Cult If Indicated (12/18/24 22:17) Page Hospitalist (12/19/24 00:51) Fill Out Med Reconciliation (12/19/24 00:51) Completed Orders - LA MERRILL Acetaminophen 325mg Tablet (Tylenol Tabl (12/18/24 22:05) Cbc/Diff (12/18/24 22:16) CMP (12/18/24 22:16) Stat Ekg (12/18/24 22:17) Medications Received in ER Medications (Trade) Dose Ordered Sig/Marissa Route PRN Reason Start Time Stop Time Status Last Admin Dose Admin (Tylenol tablet) 650 mg ONCE ONCE PO 12/18/24 22:05 12/18/24 22:06 DC 12/18/24 22:12 650 MG Vital Signs 12/18/24 12/18/24 12/18/24 20:23 22:49 23:45 Temp 98.2 Pulse 78 100 Resp 18 16 14 B/P (MAP) 137/76 123/71 (88) Pulse Ox 97 99 Laboratory Tests Test 12/18/24 22:37 12/19/24 02:38 White Blood Count 10.6 Red Blood Count 4.69 L Hemoglobin 13.7 L Hematocrit 40.4 L Mean Corpuscular Volume 86.1 Mean Corpuscular Hemoglobin 29.2 Mean Corpuscular Hemoglobin Concent 33.9 Red Cell Distribution Width 16.0 H Platelet Count 397 Mean Platelet Volume 7.0 L Neutrophils (%) (Auto) 72.2 Lymphocytes (%) (Auto) 17.5 L Monocytes (%) (Auto) 8.9 Eosinophils (%) (Auto) 0.9 Basophils (%) (Auto) 0.5 Neutrophils # (Auto) 7.6 Lymphocytes # (Auto) 1.9 Monocytes # (Auto) 0.9 Eosinophils # (Auto) 0.1 Basophils # (Auto) 0.1 CBC Comment Sodium Level 140 Potassium Level 4.1 Chloride Level 103 Carbon Dioxide Level 24.0 Anion Gap 13 Blood Urea Nitrogen 45 H Creatinine 2.81 H Estimated GFR/1.73 m2 22 BUN/Creatinine Ratio 16.0 Glucose Level 106 H Calcium Level 10.6 H Total Bilirubin 0.7 Aspartate Amino Transf (AST/SGOT) 32 Alanine Aminotransferase (ALT/SGPT) 42 Alkaline Phosphatase 165 H Total Protein 7.8 Albumin 3.3 L Globulin 4.5 H Albumin/Globulin Ratio 0.7 L Chemistry Comments Urine Comment EKG/XRAY/CT/US/VASC/MRI EKG : Additional Comment EKG was obtained and interpreted by Mercy Knight DO. Shows sinus rhythm of 61, normal TN interval, narrow QRS, no QT prolongation, normal axis, no STEMI. Chest X-Ray : Additional Comments CHEST RADIOGRAPH Indication: KNEE PAIN Technique: Single frontal view of the chest was obtained COMPARISON: DI CHEST,SINGLE VIEW on DOS: 09/28/24 FINDINGS: Lines and Tubes: None Lungs: Clear Pleura: No effusion. No pneumothorax. Cardiomediastinal contours: Unremarkable IMPRESSION: No acute disease. Electronically Signed by:TEN BURCH MD Date & Time: 12/18/242149 Dictated by: TEN BURCH MD Dictation date and time: 12/18/242149 I have reviewed and agree with the radiology report. I have reviewed and interpreted the imaging as: No focal consolidation or pneumothorax Bone/Soft Tissue X-Ray (Ext.) : Additional Comment CLINICAL INDICATION: KNEE PAIN LEFT TECHNIQUE: DI KNEE, COMP 4 VW MIN Comparison: KNEE, COMP 4 VW MIN on DOS: 06/27/22 FINDINGS: No osseous or joint abnormality identified with no joint effusion, fracture or dislocation. Joint spaces are preserved. IMPRESSION: No abnormality demonstrated. Electronically Signed by:TEN BURCH MD Date & Time: 12/18/242151 Dictated by: TEN BURCH MD Dictation date and time: 12/18/242151 I have reviewed and agree with the radiology report. I have reviewed and interpreted the imaging as: Fracture or dislocation Medical Decision Making Findings This 79-year-old male presented with weakness and left knee pain after a fall due to weakness and imbalance, patient recently discharged from [facility] after being admitted due to frequent UTIs. While physical exam was benign and patient is hemodynamically stable without x-ray evidence of fracture or dislocation and no evidence of significant injury on physical exam, patient has failed his gait test in the department and would be an unsafe discharge therefo re patient will require inpatient admission for further evaluation and monitoring, patient would benefit from inpatient physical therapy and high school social science teacher consult. Hospitalist team contacted and kindly accepts patient for admission. Departure Disposition: ADMITTED INPATIENT Admitted to Inpatient Unit: to hospitalist Impression: Primary Impression: Weakness Additional Impressions: Frequent falls Left knee pain Qualified Codes: M25.562 - Pain in left knee Referrals: NO PRIMARY CARE PROVIDER (PCP) Signature Scribe Signature: No scribe Attestation: The note accurately reflects work and decisions made by me.BALBIR Medellin 12/19/24 03:01 LA MERRILL December 18, 2024 22:06 GARY KNIGHT DO December 18, 2024 22:42
[2024-12-18] MEDS: acetaminophen 325mg tablet PO ONE (22:12)
--- NOTE | 2024-12-18 22:27 | ELECTROCARDIOGRAPH REPORT ---
[facility] Test Date: 2024-12-18 Test Time: 22:24:59 Pat Name: RAKESH RAMOS Department: [facility]-ER Patient ID: [facility]-[id number] Room: [place] [address] Gender: M Human Resources Associate: : 1945 Requested By: LA MERRILL Order Number: [id number] Reading MD: Dr. Jayy Cortes Measurements Intervals [place] Rate: 61 P: -15 WV: 170 QRS: -7 QRSD: 98 T: 76 QT: 433 QTc: 437 Interpretive Statements Pacemaker spikes or artifacts Sinus rhythm Abnormal R-wave progression, early transition Electronically Signed On 12-19-2024 6:07:[address] Jayy Cortes Please click the below link to view image of tracing.
[2024-12-18 23:06] LABS: ALANINE AMINOTRANSFERASE 42 U/L (12-78); ALBUMIN 3.3 G/DL (3.4-5.0); ALBUMIN/GLOBULIN RATIO 0.7 (1.1-1.5); ALKALINE PHOSPHATASE 165 IU/L (46-116); ANION GAP 13 (8-16); ASPARTATE AMINO TRANSFERASE 32 U/L (10-37); BASOPHILS # (AUTO) 0.1 X10'3 (0-0.2); BASOPHILS % (AUTO) 0.5 % (0-1); BILIRUBIN,TOTAL 0.7 MG/DL (0.1-1.0); BLOOD UREA NITROGEN 45 MG/DL (7-18); CALCIUM 10.6 MG/DL (8.5-10.1); CHLORIDE 103 MMOL/L (99-107); CREATININE 2.81 MG/DL (0.60-1.10); EOSINOPHILS # (AUTO) 0.1 X10'3 (0-0.9); EOSINOPHILS % (AUTO) 0.9 % (0-6); GLUCOSE 106 MG/DL (70-104); HEMATOCRIT 40.4 % (42.0-52.0); HEMOGLOBIN 13.7 g/dl (14.0-17.9); LYMPHOCYTES # (AUTO) 1.9 X10'3 (1.1-4.8); LYMPHOCYTES % (AUTO) 17.5 % (21-51); MEAN CORPUSCULAR HEMOGLOBIN 29.2 PG (27.0-31.0); MEAN CORPUSCULAR HGB CONC 33.9 g/dL (33.0-36.5); MEAN CORPUSCULAR VOLUME 86.1 FL (78-98); MONOCYTES # (AUTO) 0.9 X10'3 (0-0.9); MONOCYTES % (AUTO) 8.9 % (2-12); NEUTROPHILS # (AUTO) 7.6 X10'3 (1.8-7.7); NEUTROPHILS % (AUTO) 72.2 % (42-75); PLATELET COUNT 397 X10'3 (140-440); POTASSIUM 4.1 MMOL/L (3.5-5.1); RED BLOOD COUNT 4.69 X10'6 (4.70-6.10); SODIUM 140 MMOL/L (135-145); TOTAL PROTEIN 7.8 G/DL (6.4-8.2); WHITE BLOOD COUNT 10.6 X10'3 (4.5-11.0); eCRCL 22 ML/MIN; eGFR 22 ML/MIN
[2024-12-19] MEDS ORDERED: mag hydrox/Alum hydrox/simeth 30ml oral suspension PO PRN (03:10)
[2024-12-19] MEDS ORDERED: potassium Cl 40MEQ/1/2NS 520ml 520 ML IV PRN (03:10)
[2024-12-19] MEDS ORDERED: magnesium sulf-water 2g/50mL 50 ML IV PRN (03:10)
[2024-12-19] MEDS ORDERED: magnesium Cl slow-release 64mg tablet PO PRN (03:10)
[2024-12-19] MEDS ORDERED: ondansetron/PF 4mg/2ml inj IV PRN (03:10)
[2024-12-19] MEDS ORDERED: magnesium sulf-water 4G/100mL 100 ML IV PRN (03:10)
[2024-12-19] MEDS ORDERED: HYDROcodone/acetaminophen 5mg/325mg tablet PO PRN ×2 (03:10→04:40)
[2024-12-19] MEDS ORDERED: potassium Cl 20 mEq SR tablet PO PRN ×2 (03:10)
[2024-12-19] MEDS: acetaminophen 325mg tablet PO ONE (03:18)
[2024-12-19 03:19] LABS: CLARITY,URINE CLOUDY (Clear); COLOR,URINE YELLOW (Yellow); UA COLLECTION TYPE CLN CATCH MIDSTREAM
[2024-12-19 03:20] LABS: GLUCOSE, URINE NEGATIVE (Neg); KETONES,URINE NEGATIVE (Neg); PROTEIN,URINE 300 mg/dl (Neg)
[2024-12-19 03:21] LABS: BILIRUBIN,URINE NEGATIVE (Neg); LEUKOCYTE ESTERASE ,URINE LARGE (Neg); NITRITES, URINE NEGATIVE (Neg); OCCULT BLOOD,URINE NEGATIVE (Neg); UROBILINOGEN,URINE 0.2 E.U/dL (0.2-1.0)
[2024-12-19 03:22] LABS: BACTERIA,URINE 4+ /HPF (Neg); RBC,URINE TNTC /HPF (0-2); SQUAMOUS EPITHELIAL CELL,UR FEW /LPF (FEW); WBC,URINE TNTC /HPF (0-4)
[2024-12-19] MEDS: HYDROcodone/acetaminophen 10/325mg tab PO PRN (03:39)
[2024-12-19] MEDS: normal saline 1000ml 1,000 ML IV SCH (03:40)
[2024-12-19 04:25] VITALS: BP 143/60; PULSE 57; RESP 20; TEMP 97.8; O2SAT 99
--- NOTE | 2024-12-19 04:29 | HISTORY AND PHYSICAL-Residence ---
History & Physical Providers to CC Resident Creating Document: EDUARDO AUGUSTIN RES ~ History of Present Illness Primary Medical Doctor: ORALIA Contreras Reason for Admit\Complaint: Generalized weakness History of Present Illness This is a 79-year-old male with past medical history of pyelonephritis s/p bilateral ureteral stent placement on 09/28/2024, CKD, nephrolithiasis, BPH was brought to the ER after a fall. This morning he was discharged from [facility]. He reports a fall while he was trying to get up from the toilet seat because of the loss of balance. He hit left knee and left chest on the bathtub. Denies any head strike or loss of consciousness. Also denies chest pain, palpitations, shortness of breadth. Denies fever, dysuria, diarrhea. Denies any recent change in his medications. He normally ambulates with a walker, reports feeling weaker than normal. Allergies: Coded Allergies: No Known Allergies (Unverified , 05/31/24) Home Medications Home Medications Active Reported Hydrocodon-Acetaminophen 5-325 (Hydrocodone Bit/Acetaminophen) 5 Mg-325 Mg Tablet 1 Tab PO Q4H PRN MDD 8 tab LIPITOR tablet (Atorvastatin Calcium) 20 Mg Tablet 20 Mg PO DAILY Lyrica (Pregabalin) 50 Mg Capsule 1 Cap PO Q8H Aspir 81 (Aspirin) 81 Mg Tablet.dr 1 Tab PO DAILY 30 Days Nitrostat SL* (Nitroglycerin) 0.4 Mg Tablet 1 Tab SL Q5MIN PRN Flomax* (Tamsulosin HCl) 0.4 Mg Cap.sr.24h 2 Cap PO HS 30 Days Past Medical History Past Medical History CKD Nephrolithiasis Pyelonephritis BPH Past Surgical History Surgical History Comment History of bilateral ureteral stent placement on 09/28/2024 Family History Family History: FH: heart attack MOTHER (PER PT THEY ) ( in her 80s) FH: stroke FATHER (PER PT THEY ) ( at 49) Past Social History Social History Comment Denies any history of smoking Denies any history of alcohol use Denies any history of drug use Lives with his Smoking: Non-Smoker Drug Use: None Lives with: Alone Lives In: Home Occupation: retired ROS Constitutional: Denies: no symptoms reported, see HPI, chills, diaphoresis, fever, malaise, weakness, other Eyes: Denies: no symptoms reported, see HPI, pain, discharge, blurred vision, double vision, itching, photophobia, redness, tearing, other ENT: Denies: no symptoms reported, see HPI, ear pain, ear bleeding, ear discharge, hearing loss, ear ringing, nose pain, nose bleeding, nose congestion, nose discharge, throat pain, throat swelling, voice change, mouth pain, mouth bleeding, mouth swelling, other Respiratory: Denies: no symptoms reported, see HPI, cough, orthopnea, shortness of breath, SOB with exertion, SOB at rest, stridor, wheezing, hemoptysis, pain with breathing, other Cardiovascular: Denies: no symptoms reported, see HPI, chest pain, left arm pain, diaphoresis, lightheadedness, syncope, edema, palpitations, irregular heart rate, other Gastrointestinal: Denies: no symptoms reported, see HPI, abdomen distended, abdominal pain, nausea, vomiting, diarrhea, constipated, melena, hematemesis, hematochezia, rectal bleeding, rectal pain, dysphagia, poor appetite, poor fluid intake, other Genitourinary: Denies: no symptoms reported, see HPI, burning, discharge, dysuria, frequency, flank pain, hematuria, incontinence, pain, decreased urine output, urgency, other Male Genitalia: Denies: no symptoms reported, see HPI, penile discharge, penile sore, testicular pain, testicular swelling, other Neurological: Denies: no symptoms reported, see HPI, speech problem, headache, dizziness, fainting, tingling, left sided numbness, right sided numbness, left sided weakness, right sided weakness, problems walking, unable to move lower ext, unable to move upper ext, petit mal seizures, tonic-clonic seizures, cognitive dysfunction, other Musculoskeletal: Reports: pain Exam Vitals: Vital Signs Date Time Temp Pulse Resp B/P (MAP) Pulse Ox O2 Delivery O2 Flow Rate FiO2 12/19/24 04:14 85 14 125/66 (85) 99 12/18/24 20:23 98.2 General: General: Alert, oriented, not in distress HEENT: Conjunctive are pink, sclerae clear, no icterus, pupil is equal in both sides. Neck: Supple, no JVD, no lymphadenopathy and thyromegaly. Chest: Equal air entry on both lungs, no adventitious lung sounds Cardiovascular: S1-S2 regular sinus rhythm and, regular rate, no gallops, no rubs, no murmurs Abdomen:. Bowel sounds present on auscultation, soft, no tenderness, no guarding, no rigidity Extremities: No obvious deformities, no edema bilaterally, capillary refill intact, peripheral pulsations are intact on both sides Central Nervous System: No focal neurological deficits, could move all 4 extremities. Musculoskeletal: No joint swelling, deformities, inflammations, and no scoliosis and back tenderness Skin: Warm and dry Diagnostic Data Last Recorded Lab Results: 12/18/24223612/18/242236 Advance Care Planning Advanced Care plannin - 30 Minutes (I spent 17 minutes in discussing various resuscitative measures, the patient chose to be a full code) Additional Plan Assessment This is a 79-year-old male with a history of pyelonephritis status post bilateral ureteral stent placement on 09/28/2024, CKD, nephrolithiasis came to the ER after he had a fall. Patient is being admitted for UTI and ANABELA Plan Fall secondary to imbalance Recurrent UTI Knee x-ray and chest x-ray showed no significant findings WBC count is in the normal range, procalcitonin ordered Urine analysis is positive for proteinuria, leukocyte esterase, WBC Urine cultures ordered In the previous admission urine cultures were positive for E coli. Started on ceftriaxone ANABELA on CKD likely secondary to renal tubular stasis Creatinine 2.81, BUN 45 Creatinine on 10/03/2024 was 1.81 Started on IV fluids Renal ultrasound ordered Urine electrolytes ordered Follow up with repeat BMP. Consult nephrology in the morning Elevated proBNP ProBNP 619 Echo in 06/14 showed an ejection fraction of 55-60% History of BPH Continued patient's home medication tamsulosin History of peripheral neuropathy Continued patient's home medication pregabalin Code stroke: Full code DVT prophylaxis:Heparin diet: Renal Line/tubes: Peripheral IV line Eduardo Augustin M.D PGY1 Pt seen and evaluated with the resident team Having recurrent UTI here with worsening ANABELA on CKD We asked for imaging to evaluate for obstruction Agree with the assessment and plan as documented Date of Service: December 19, 2024 Billing Provider: JAIMIE LOPEZ MD, PRAVAHIKA, RES December 19, 2024 04:29 JAIMIE LOPEZ MD December 19, 2024 07:41
[2024-12-19 04:34] LABS: MAGNESIUM 2.1 MG/DL (1.5-2.4); PRO BRAIN NATRIURETIC PEPTIDE 619 PG/ML (0-450)
[2024-12-19] MEDS ORDERED: nitroGLYCERIN 0.4mg SUBLingual tab SL PRN (04:40)
[2024-12-19 05:00] VITALS: BP 119/60; PULSE 57; RESP 16; RESP 18; TEMP 97.3; O2SAT 95; O2SAT 97
[2024-12-19 06:23] LABS: HEMOGLOBIN A1C 5.4 % (4.5-6.2)
[2024-12-19] MEDS: K and/or MAG REPLACEMENT MC SCH (08:00)
[2024-12-19] MEDS ORDERED: CefTRIAXone/D5W-Rocephin 1gm 50 ML IV SCH (08:00)
[2024-12-19] MEDS: CefTRIAXone/D5W-Rocephin 1gm 50 ML IV ONE (08:53)
[2024-12-19] MEDS: heparin, porcine 5000 units/ml vial SQ SCH (08:54)
[2024-12-19] MEDS: pregabalin 25mg capsule PO SCH (08:54)
[2024-12-19] MEDS: aspirin 81mg, enteric-coated 1 TAB TABLET.DR PO SCH (08:55)
[2024-12-19] MEDS: atorvastatin 20mg tablet PO SCH (08:55)
[2024-12-19] MEDS: docusate sod 100mg capsule PO SCH (08:55)
[2024-12-19] MEDS: acetaminophen 325mg tablet PO PRN (08:55)
[2024-12-19 09:30] VITALS: RESP 16; O2SAT 93
[2024-12-19 10:00] VITALS: BP 115/55; PULSE 56; RESP 16; TEMP 98.1; O2SAT 93
--- NOTE | 2024-12-19 12:50 | RADIOLOGY REPORT ---
CT CT ABDOMEN PELVIS INDICATION: recurrent UTI with bi obstructive uropathy 09/2024 with bi stent placemeny EXAM DATE: 12/19/2024 10:16 AM COMPARISON: CT CT ABDOMEN PELVIS on DOS: 09/28/24, CT CT ABDOMEN PELVIS on DOS: 05/31/24, CT CT ABDOME N PELVIS on DOS: 02/29/24 RADIATION DOSE: CTDIvol: 20 mGy, DLP: 1130 mGy*cm PROCEDURE: Helical CT images were obtained of the abdomen and pelvis without IV contrast Sagittal and coronal reconstructions are provided. ORAL CONTRAST: None. ADDITIONAL IMAGES / REFORMATS: None All C T scans at this medical facility are performed using dose modulation techniques as appropriate to a p erformed exam including the following: Automated exposure control was utilized; adjustment of the MA and/or KV according to patient size; and use of iterative reconstruction technique. FINDINGS: LUNG BASE: There is bibasilar atelectasis and right perihilar calcified lymph nodes. LIVER: Normal. GALLBLADDER AND BILIARY TREE: No calcified gallstones. Normal caliber wall. No intra- or extrahepatic biliary ductal dilation. PANCREAS: Normal. SPLEEN: Normal. BOWEL: Severe colonic diverticulosis with mild sigmoid colonic diverticulitis. The appendix appears n ormal. ADRENALS: Normal. KIDNEYS AND URETER: There has been interval placement of bilateral ureteral stents. Interval removal of the previously obstructive left proximal ureter kidney stone. Bilateral nonobstructive kidney ston es remain. Mild bilateral hydronephrosis is seen with mild inflammation in the bilateral renal pelvis . BLADDER: Normal. REPRODUCTIVE ORGANS: Normal. LYMPH NODES:No lymphadenopathy. PERITONEUM: No ascites or free air. No other fluid collection. VESSELS: Scattered atherosclerotic calcifications are noted. RETROPERITONEUM: Normal. ABDOMINAL WALL: Normal. BONES: Scattered osseous degenerative changes are noted. Mild L1 compression deformity. IMPRESSION: Severe colonic diverticulosis with mild sigmoid colonic diverticulitis. Interval placement of bilateral ureteral stents. Interval removal of the previously obstructive left proximal ureter kidney stone. Bilateral nonobstructive kidney stones remain. Mild bilateral hydroneph rosis is seen with mild inflammation in the bilateral renal pelvis.
--- NOTE | 2024-12-19 14:39 | RADIOLOGY REPORT ---
EXAM: US Retroperitoneal Limited, Renal CLINICAL INDICATION: ANABELA TECHNIQUE: Real-time limited ultrasound of the retroperitoneum with image documentation. COMPARISON: US ULTRASOUND KIDNEY NON VASC on DOS: 05/31/24, US ULTRASOUND KIDNEY NON VASC on DOS: FINDINGS: RIGHT KIDNEY: Unremarkable. No stones. No hydronephrosis. The right kidney measures 10.0 x 8.0 x 7.3 cm. LEFT KIDNEY: Unremarkable. No stones. No hydronephrosis. The left kidney measures 8.9 x 4.5 x 5. 7 cm. OTHER FINDINGS: . IMPRESSION: No acute findings in the retroperitoneum.
[2024-12-19 19:05] VITALS: BP 119/56; PULSE 56; RESP 18; TEMP 97.5; O2SAT 96
--- NOTE | 2024-12-19 20:45 | PROGRESS NOTE ---
Clinical Note Clinical Note Progress Note: The patient is completely somnolent today when I evaluated him. He is here with a metabolic encephalopathy secondary to UTI has a history of bilateral renal stent placement due to obstructive uropathy with Dr. Fulton in September of [address] scan of the abdomen and pelvis to evaluate for obstructive uropathy that has bilateral nonobstructive kidney stones remain and a bilateral mild hydronephrosis seen with mild inflammation and bilateral renal pelvis. The patient is on IV Rocephin Admitted after midnight - to be billed by DONNELL Cole DO December 19, 2024 20:45
[2024-12-19] MEDS: tamsulosin 0.4mg capsule PO SCH (21:00)
[2024-12-20 05:00] VITALS: BP 110/49; PULSE 79; RESP 16; TEMP 97.5; O2SAT 98
[2024-12-20 06:17] LABS: ALBUMIN 2.7 G/DL (3.4-5.0); ANION GAP 10 (8-16); BLOOD UREA NITROGEN 41 MG/DL (7-18); BUN/CREATININE RATIO 18.1 (10.0-20.0); CALCIUM 9.6 MG/DL (8.5-10.1); CHLORIDE 107 MMOL/L (99-107); CHOL/HDL RATIO 2.2 (0.00-4.99); CHOLESTEROL 123 MG/DL (0-200); CREATININE 2.27 MG/DL (0.60-1.10); GLUCOSE 92 MG/DL (70-104); HDL CHOLESTEROL 55 MG/DL (35-60); LDL CHOLESTEROL 57 MG/DL (50-100); POTASSIUM 4.1 MMOL/L (3.5-5.1); SODIUM 142 MMOL/L (135-145); TOTAL CARBON DIOXIDE 24.8 MMOL/L (24-32); TRIGLYCERIDES 83 MG/DL (20-135); eCRCL 28 ML/MIN; eGFR 28 ML/MIN
[2024-12-20 06:23] LABS: BASOPHILS # (AUTO) 0.1 X10'3 (0-0.2); BASOPHILS % (AUTO) 0.9 % (0-1); EOSINOPHILS # (AUTO) 0.3 X10'3 (0-0.9); EOSINOPHILS % (AUTO) 4.3 % (0-6); HEMATOCRIT 36.7 % (42.0-52.0); HEMOGLOBIN 12.3 g/dl (14.0-17.9); LYMPHOCYTES # (AUTO) 1.2 X10'3 (1.1-4.8); LYMPHOCYTES % (AUTO) 15.1 % (21-51); MEAN CORPUSCULAR HEMOGLOBIN 29.4 PG (27.0-31.0); MEAN CORPUSCULAR HGB CONC 33.4 g/dL (33.0-36.5); MEAN PLATELET VOLUME 7.5 FL (7.4-10.4); MONOCYTES # (AUTO) 0.6 X10'3 (0-0.9); MONOCYTES % (AUTO) 7.4 % (2-12); NEUTROPHILS # (AUTO) 5.5 X10'3 (1.8-7.7); NEUTROPHILS % (AUTO) 72.3 % (42-75); PLATELET COUNT 300 X10'3 (140-440); RED BLOOD COUNT 4.17 X10'6 (4.70-6.10); RED CELL DISTRIBUTION WIDTH 16.8 % (11.5-14.5); WHITE BLOOD COUNT 7.6 X10'3 (4.5-11.0)
[2024-12-20] MEDS: CefTRIAXone 2gm/D5W 50ml BAG 50 ML IV SCH (08:47)
[2024-12-20 10:30] VITALS: RESP 18; O2SAT 97
[2024-12-20 11:13] VITALS: BP 108/52; PULSE 55; RESP 17; TEMP 97.8; O2SAT 97
[2024-12-20] MEDS: magnesium hydroxide 30ml (MOM) UD suspension PO PRN (11:30)
--- NOTE | 2024-12-20 15:43 | PROGRESS NOTE ---
Daily Progress Note Providers to CC ~ Antibiotic Timeout Antibiotic Ordered?: Yes Subjective No new complaints, patient is seen resting comfortably. Objective Vital Signs Date Time Temp Pulse Resp B/P (MAP) Pulse Ox O2 Delivery O2 Flow Rate FiO2 12/20/24 11:13 97.8 55 17 108/52 (70) 97 Room Air 12/19/24 19:05 0 21 Result Diagram: 12/20/24 0510 12/20/24 0510 Alert oriented in NAD HEENT NC, AT , EOMI Neck supple, no JVD Chest clear to auscultation , no wheezes crackles or rhonchi Heart RRR Abdomen soft nontender no organomegaly Extremities No C/C/E Neuro exam nonfocal Other Results Medications reviewed Problem\Assessment\Plan 79 year old male admitted for a fall 1. Metabolic encephalopathy -improving 2. UTI Continue Rocephin 3. ANABELA : Cr. Trending down. Likely due to vasomotor nephropathy, continue monitor 4. BPH Continue tamsulosin 5. Hyperlipidemia Continue atorvastatin 6. DVT Prophyalxis continue heparin 7. Code status Full code. Date of Service: Dec 20, 2024 Billing Provider: ADAMS GUTIÉRREZ MD Common Visit Codes: [id number] INP/OBS CARE(HIGH) ADAMS GUTIÉRREZ MD Dec 20, 2024 15:42
[2024-12-20 20:00] VITALS: RESP 17; O2SAT 58; O2SAT 98
[2024-12-21 06:00] VITALS: BP 120/47; PULSE 50; RESP 14; TEMP 96; O2SAT 98
[2024-12-21 06:04] LABS: BASOPHILS # (AUTO) 0.1 X10'3 (0-0.2); BASOPHILS % (AUTO) 1.1 % (0-1); EOSINOPHILS # (AUTO) 0.4 X10'3 (0-0.9); EOSINOPHILS % (AUTO) 5.1 % (0-6); HEMATOCRIT 34.5 % (42.0-52.0); HEMOGLOBIN 11.5 g/dl (14.0-17.9); LYMPHOCYTES # (AUTO) 1.7 X10'3 (1.1-4.8); LYMPHOCYTES % (AUTO) 23.5 % (21-51); MEAN CORPUSCULAR HEMOGLOBIN 29.2 PG (27.0-31.0); MEAN CORPUSCULAR HGB CONC 33.4 g/dL (33.0-36.5); MEAN CORPUSCULAR VOLUME 87.4 FL (78-98); MEAN PLATELET VOLUME 7.4 FL (7.4-10.4); MONOCYTES # (AUTO) 0.7 X10'3 (0-0.9); MONOCYTES % (AUTO) 9.3 % (2-12); NEUTROPHILS # (AUTO) 4.5 X10'3 (1.8-7.7); PLATELET COUNT 270 X10'3 (140-440); RED BLOOD COUNT 3.95 X10'6 (4.70-6.10); RED CELL DISTRIBUTION WIDTH 16.2 % (11.5-14.5); WHITE BLOOD COUNT 7.4 X10'3 (4.5-11.0)
[2024-12-21 06:10] LABS: ALBUMIN 2.5 G/DL (3.4-5.0); ANION GAP 10 (8-16); BLOOD UREA NITROGEN 38 MG/DL (7-18); BUN/CREATININE RATIO 17.8 (10.0-20.0); CALCIUM 8.9 MG/DL (8.5-10.1); CHLORIDE 107 MMOL/L (99-107); CREATININE 2.14 MG/DL (0.60-1.10); GLUCOSE 91 MG/DL (70-104); POTASSIUM 4.3 MMOL/L (3.5-5.1); SODIUM 142 MMOL/L (135-145); TOTAL CARBON DIOXIDE 24.7 MMOL/L (24-32); eCRCL 29 ML/MIN; eGFR 30 ML/MIN
[2024-12-21 08:00] VITALS: RESP 16; O2SAT 97
[2024-12-21 10:00] VITALS: BP 114/52; PULSE 58; RESP 17; TEMP 97.9; O2SAT 96
[2024-12-21] MEDS ORDERED: ESCITALOPRAM 10 mg tablet 10 MG TABLET PO SCH (10:10)
--- NOTE | 2024-12-21 10:10 | PROGRESS NOTE ---
Daily Progress Note Providers to CC ~ Antibiotic Timeout Antibiotic Ordered?: Yes Subjective No new complaints, informed during the case management meeting that patient just refuses to eat at [facility] however patient states he eats every thing on his tray. Patient states he does not want to go to [facility] but will go to [place] Objective Vital Signs Date Time Temp Pulse Resp B/P (MAP) Pulse Ox O2 Delivery O2 Flow Rate FiO2 12/21/24 08:00 16 97 Room Air 12/20/24 11:13 97.8 55 108/52 (70) 12/19/24 19:05 0 21 Result Diagram: 12/21/2443412/21/24434 Alert oriented in NAD HEENT NC, AT , EOMI Neck supple, no JVD Chest clear to auscultation , no wheezes crackles or rhonchi Heart RRR, No murmur gallop or rub Abdomen soft nontender no organomegaly Extremities No C/C/E Neuro exam nonfocal Other Results Medications reviewed Problem\Assessment\Plan 79 year old male admitted for a fall 1. Metabolic encephalopathy -resolved. 2. UTI Continue Rocephin, await final cultures 3. ANABELA : Cr. Trending down. Likely due to vasomotor nephropathy, continue monitor 4. BPH Continue tamsulosin 5. Hyperlipidemia Continue atorvastatin 6. DVT Prophyalxis continue heparin 7. Code status Full code. 8. Failure to thrive, will add lexapro and marinol and monitor. 9. Disposition D/W corrections caseworker, she will send a referral to [facility] Date of Service: Dec 21, 2024 Billing Provider: ADAMS GUTIÉRREZ MD Common Visit Codes: [id number] INP/OBS CARE(HIGH) ADAMS GUTIÉRREZ MD Dec 21, 2024 10:10
[2024-12-21 18:30] VITALS: BP 120/79; PULSE 55; RESP 17; TEMP 98.2; O2SAT 98
[2024-12-21 20:00] VITALS: RESP 18; O2SAT 98
[2024-12-21] MEDS: dronabinol 2.5mg capsule PO SCH (20:00)
[2024-12-21 21:27] LABS: TOTAL PROTEIN,URINE RANDOM 28.5 MG/DL
[2024-12-21 22:00] VITALS: BP 129/57; PULSE 60; RESP 17; TEMP 98.2; O2SAT 99
[2024-12-22 04:57] LABS: BASOPHILS # (AUTO) 0.1 X10'3 (0-0.2); BASOPHILS % (AUTO) 0.9 % (0-1); EOSINOPHILS # (AUTO) 0.3 X10'3 (0-0.9); EOSINOPHILS % (AUTO) 4.4 % (0-6); HEMATOCRIT 32.8 % (42.0-52.0); HEMOGLOBIN 11.1 g/dl (14.0-17.9); LYMPHOCYTES # (AUTO) 1.4 X10'3 (1.1-4.8); LYMPHOCYTES % (AUTO) 19.2 % (21-51); MEAN CORPUSCULAR HEMOGLOBIN 29.5 PG (27.0-31.0); MEAN CORPUSCULAR HGB CONC 33.8 g/dL (33.0-36.5); MEAN CORPUSCULAR VOLUME 87.4 FL (78-98); MEAN PLATELET VOLUME 7.1 FL (7.4-10.4); MONOCYTES # (AUTO) 0.6 X10'3 (0-0.9); MONOCYTES % (AUTO) 8.2 % (2-12); NEUTROPHILS # (AUTO) 4.7 X10'3 (1.8-7.7); NEUTROPHILS % (AUTO) 67.3 % (42-75); PLATELET COUNT 260 X10'3 (140-440); RED BLOOD COUNT 3.76 X10'6 (4.70-6.10); RED CELL DISTRIBUTION WIDTH 15.8 % (11.5-14.5); WHITE BLOOD COUNT 7.1 X10'3 (4.5-11.0)
[2024-12-22 05:21] LABS: ALBUMIN 2.3 G/DL (3.4-5.0); ANION GAP 8 (8-16); BLOOD UREA NITROGEN 41 MG/DL (7-18); BUN/CREATININE RATIO 15.8 (10.0-20.0); CALCIUM 8.8 MG/DL (8.5-10.1); CHLORIDE 110 MMOL/L (99-107); GLUCOSE 101 MG/DL (70-104); POTASSIUM 4.5 MMOL/L (3.5-5.1); SODIUM 142 MMOL/L (135-145); TOTAL CARBON DIOXIDE 23.7 MMOL/L (24-32); eCRCL 24 ML/MIN; eGFR 24 ML/MIN
[2024-12-22 06:00] VITALS: BP 153/70; PULSE 64; RESP 15; TEMP 98.9; O2SAT 97
[2024-12-22 08:00] VITALS: RESP 17; O2SAT 95
[2024-12-22] MEDS: ESCITALOPRAM 10 mg tablet 10 MG TABLET PO SCH (09:18)
[2024-12-22 10:00] VITALS: BP 123/68; PULSE 60; RESP 17; TEMP 97.9; O2SAT 97
--- NOTE | 2024-12-22 17:07 | PROGRESS NOTE ---
Daily Progress Note Providers to CC ~ Antibiotic Timeout Antibiotic Ordered?: Yes Subjective No new complaints, patient is seen resting comfortably. Objective Vital Signs Date Time Temp Pulse Resp B/P (MAP) Pulse Ox O2 Delivery O2 Flow Rate FiO2 12/22/24 10:00 97.9 60 17 123/68 (86) 97 Room Air 12/21/24 20:00 0.0 21 Result Diagram: 12/22/2442412/22/24424 Alert oriented in NAD HEENT NC, AT , EOMI Neck supple, no JVD Chest clear to auscultation , no wheezes crackles or rhonchi Heart RRR, No murmur gallop or rub Abdomen soft nontender no organomegaly Extremities No C/C/E Neuro exam nonfocal Other Results Medications reviewed Problem\Assessment\Plan 79 year old male admitted for a fall 1. Metabolic encephalopathy -resolved. 2. UTI : DC Rocephin, Start on Meropenam 3. ANABELA : Cr. Trending down. Likely due to vasomotor nephropathy, continue monitor 4. BPH Continue tamsulosin 5. Hyperlipidemia Continue atorvastatin 6. DVT Prophyalxis continue heparin 7. Code status Full code. 8. Failure to thrive, will add lexapro and marinol and monitor. 9. Disposition : To SNF Date of Service: Dec 22, 2024 Billing Provider: ADAMS GUTIÉRREZ MD Common Visit Codes: [id number] INP/OBS CARE(HIGH) ADAMS GUTIÉRREZ MD Dec 22, 2024 17:07
[2024-12-22 18:00] VITALS: BP 123/60; PULSE 54; RESP 17; TEMP 97.4; O2SAT 97
[2024-12-22 20:00] VITALS: RESP 18; O2SAT 97
[2024-12-22 22:00] VITALS: BP 133/64; PULSE 55; RESP 14; TEMP 98.5; O2SAT 98
[2024-12-23 04:52] LABS: BASOPHILS # (AUTO) 0.1 X10'3 (0-0.2); BASOPHILS % (AUTO) 1.3 % (0-1); EOSINOPHILS # (AUTO) 0.3 X10'3 (0-0.9); EOSINOPHILS % (AUTO) 5.8 % (0-6); HEMATOCRIT 33.2 % (42.0-52.0); LYMPHOCYTES # (AUTO) 1.5 X10'3 (1.1-4.8); MEAN CORPUSCULAR HEMOGLOBIN 29.1 PG (27.0-31.0); MEAN CORPUSCULAR HGB CONC 33.2 g/dL (33.0-36.5); MEAN CORPUSCULAR VOLUME 87.6 FL (78-98); MONOCYTES # (AUTO) 0.4 X10'3 (0-0.9); MONOCYTES % (AUTO) 6.6 % (2-12); NEUTROPHILS # (AUTO) 3.5 X10'3 (1.8-7.7); NEUTROPHILS % (AUTO) 60.3 % (42-75); PLATELET COUNT 255 X10'3 (140-440); RED CELL DISTRIBUTION WIDTH 16.4 % (11.5-14.5); WHITE BLOOD COUNT 5.9 X10'3 (4.5-11.0)
[2024-12-23 05:14] LABS: ALBUMIN 2.3 G/DL (3.4-5.0); ANION GAP 11 (8-16); BLOOD UREA NITROGEN 38 MG/DL (7-18); BUN/CREATININE RATIO 19.6 (10.0-20.0); CALCIUM 9.1 MG/DL (8.5-10.1); CHLORIDE 111 MMOL/L (99-107); CREATININE 1.94 MG/DL (0.60-1.10); GLUCOSE 99 MG/DL (70-104); POTASSIUM 4.3 MMOL/L (3.5-5.1); SODIUM 145 MMOL/L (135-145); TOTAL CARBON DIOXIDE 22.8 MMOL/L (24-32); eCRCL 32 ML/MIN; eGFR 34 ML/MIN
[2024-12-23 06:00] VITALS: BP 139/61; PULSE 51; RESP 18; TEMP 97.4; O2SAT 98
[2024-12-23 08:00] VITALS: RESP 18; O2SAT 98
--- NOTE | 2024-12-23 09:20 | CONSULTATION REPORT - RESIDENT ---
Consult Providers to CC Resident Creating Document: LOW AUGUSTIN RES History of Present Illness Reason for Admit\Complaint: Generalized weakness History of Present Illness This is a 79-year-old male with past medical history of bilateral obstructing UPJ stones, pyelonephritis s/p bilateral ureteral stent placement on 09/28/2024, CKD, nephrolithiasis, BPH was brought to the ER after a fall. Presented to the hospital on the day he was discharged from [facility]. He reports a fall while he was trying to get up from the toilet seat because of the loss of balance. He hit left knee and left chest on the bathtub. Denied any head strike or loss of consciousness. Patient reported that he has supposed to get the ureteral stents removed but could not be done as he was in the hospital. Patient was in ANABELA at the time of admission with a creatinine of 2.27, initially down trended with fluids and again increased to 2.6, for which the infantry indirect fire crewmember was consulted. The ANABELA was likely secondary to imbalance but in the input and output. The patient had an output of 5 L on and 4th, which is likely the result of ANABELA. Patient will need more fluids. Allergies: Coded Allergies: No Known Allergies (Unverified , 05/31/24) Home Medications Home Medications Active Reported Hydrocodon-Acetaminophen 5-325 (Hydrocodone Bit/Acetaminophen) 5 Mg-325 Mg Tablet 1 Tab PO Q4H PRN MDD 8 tab LIPITOR tablet (Atorvastatin Calcium) 20 Mg Tablet 20 Mg PO DAILY Lyrica (Pregabalin) 50 Mg Capsule 1 Cap PO Q8H Aspir 81 (Aspirin) 81 Mg Tablet.dr 1 Tab PO DAILY 30 Days Nitrostat SL* (Nitroglycerin) 0.4 Mg Tablet 1 Tab SL Q5MIN PRN Flomax* (Tamsulosin HCl) 0.4 Mg Cap.sr.24h 2 Cap PO HS 30 Days Past Medical History Past Medical History CKD Nephrolithiasis Pyelonephritis BPH Past Surgical History Surgical History Comment History of bilateral ureteral stent placement on 09/28/2024 Family History Family History: FH: heart attack MOTHER (PER PT THEY ) ( in her 80s) FH: stroke FATHER (PER PT THEY ) ( at 49) Past Social History Social History Comment Denies any history of smoking Denies any history of alcohol use Denies any history of drug use Lives with his Exam Vitals: Vital Signs Date Time Temp Pulse Resp B/P (MAP) Pulse Ox O2 Delivery O2 Flow Rate FiO2 12/23/24 06:00 97.4 51 18 139/61 (87) 98 Room Air 12/21/24 20:00 0.0 21 General: General: Alert, oriented, not in distress HEENT: Conjunctive are pink, sclerae clear, no icterus, pupil is equal in both sides. Neck: Supple, no JVD, no lymphadenopathy and thyromegaly. Chest: Equal air entry on both lungs, no adventitious lung sounds Cardiovascular: S1-S2 regular sinus rhythm and, regular rate, no gallops, no rubs, no murmurs Abdomen:. Bowel sounds present on auscultation, soft, no tenderness, no guarding, no rigidity Extremities: No obvious deformities, no edema bilaterally, capillary refill intact, peripheral pulsations are intact on both sides Central Nervous System: No focal neurological deficits, could move all 4 extremities. Musculoskeletal: No joint swelling, deformities, inflammations, and no scoliosis and back tenderness Skin: Warm and dry Diagnostic Data Last Recorded Lab Results: 12/23/24 0421 12/23/24 0421 Additional Plan Assessment This is a 79-year-old male with a history of pyelonephritis status post bilateral ureteral stent placement on 09/28/2024, CKD, nephrolithiasis came to the ER after he had a fall. Patient is being admitted for UTI and ANABELA Plan ANABELA on CKD likely secondary to renal tubular stasis Creatinine improved today to 1.94 Creatinine at the time of admission 2.81 Increase rate of IV fluids to 125 mL/hr. Renal ultrasound no acute findings in the retroperitoneum. Abdominal CT showed bilateral ureteral stents. Bilateral nonobstructive kidney stones remained. Mild bilateral hydronephrosis with mild inflammation in renal pelvis. Follow up with repeat BMP. Avoid NSAIDs and contrast. Fall secondary to imbalance Recurrent UTI Knee x-ray and chest x-ray showed no significant findings Urine analysis is positive for proteinuria, leukocyte esterase, WBC Urine cultures she was Pseudomonas Previously on ceftriaxone, discontinued and started on meropenem. Elevated proBNP ProBNP 619 Echo in 06/14 showed an ejection fraction of 55-60% History of BPH Continued patient's home medication tamsulosin History of peripheral neuropathy Continued patient's home medication pregabalin Code does: Full code Full code DVT prophylaxis:Heparin diet: Renal Line/tubes: Peripheral IV line Low Augustin M.D Nephrology resident PGY1 Date of Service: Dec 23, 2024 Billing Provider: JANIS LOPEZ III, PRAVAHIKA, RES Dec 23, 2024 09:20
--- NOTE | 2024-12-23 14:19 | DISCHARGE SUMMARY ---
Discharge Summary Providers to CC ~ Discharge Summary Admission Diagnosis: generalized weakness Hospital Course DATE OF ADMISSION: DATE OF DISCHARGE:12/23/2024 Discharge Diagnosis\Comment: ANABELA Operations\Procedures: Abdomen/Pelvis CT Consultants: Telephone discussion with Dr. Calvert Complications: None Condition on DC: Stable Total Time Spent on D/C: > 30 Minutes ADAMS GUTIÉRREZ MD Dec 23, 2024 14:19
== END 2024-12-23 16:30 | DRG 682 ==
LOC: ER 20:06 → ED HOLD 12-19 03:15 → SUR 3N 12-19 04:20
PROVIDERS: ADMIT Internal Medicine; ATTEND Family Medicine
DX: N17.0 Acute kidney failure with tubular necrosis (principal); G93.41 Metabolic encephalopathy; N39.0 Urinary tract infection, site not specified; E78.00 Pure hypercholesterolemia, unspecified; J45.909 Unspecified asthma, uncomplicated; N40.0 Benign prostatic hyperplasia without lower urinary tract symptoms; E11.42 Type 2 diabetes mellitus with diabetic polyneuropathy; F32.A Depression, unspecified; M25.562 Pain in left knee; E11.22 Type 2 diabetes mellitus with diabetic chronic kidney disease; N18.9 Chronic kidney disease, unspecified; R62.7 Adult failure to thrive; Z86.73 Personal history of transient ischemic attack (TIA), and cerebral infarction without residual deficits; Z79.82 Long term (current) use of aspirin; Z79.899 Other long term (current) drug therapy; Z68.21 Body mass index [BMI] 21.0-21.9, adult
CPT/HCPCS: 36415; 71045; 73564; 74176; 76770; 80048; 80053; 80061; 81001; 82570; 83036; 83735; 83880; 83935; 84145; 84156; 84300; 85025; 87077; 87081; 87088; 87186; 87207; 93005; 97110; 97161; 97530; 99285; A6250; A6449; A6590; G0378; J0696; J1644; J7030; Q0167